=== PATIENT | male | born 1940 | race Caucasian/White ===

== ENCOUNTER 2019-02-23 12:49 | Inpatient (IN) ==
[2019-02-23] MEDS ORDERED: ACETAMINOPHEN 325 MG TAB PO PRN (15:43)
[2019-02-23] MEDS ORDERED: ONDANSETRON INJ 2 MG/ML 2 ML VIAL IV PRN (15:43)
--- NOTE | 2019-02-23 15:58 | History & Physical Report ---
Date of Service February 23, 2019 Assessment & Plan (1) Pneumonia: (2) Hilar adenopathy: - Admit to med surg with tele - Check cbc, cmp, blood cultures x 2, lactic acid, procalcitonin - CT chest completed at OSH - send image for upload into PACs system - Pulmonary consultation for bronchoscopy/biopsy - Discussed with Dr. Magallanes via phone - IV abx with cefepime - pt does not remember allergic reaction to pcn as this happened a very long time ago. - Check MRSA swab and consider adding vanc - Tessalon pearls, mucinex, flutter, incentive spirometry, duonebs QID and Q2H prn - Start symbicort - Give prednisone 40 mg one, now - monitor response - CTPE of the chest from OSH showing extensive adenopathy, masslike adenopathy in the right hilar region encasing the vessels and vascular structures. This is likely causing post obstructive pneumonia in the right lung. There are also areas of ground glass attenuation in the left lung which are not apparent on plain film. Differential diagnosis includes lung primary tumors as well as lymphoma. No pulmonary embolism - allow diet for now, NPO after midnight if needed for pulm procedure (3) CAD (coronary artery disease): (4) HTN (hypertension): (5) HLD (hyperlipidemia): (6) A-fib: - Continue on xarelto for now, will hold if pulmonology plans to do procedure (7) Hx of myocardial infarction: - Occurred in 2006 - Follows with cardiology, Dr. Newman, as outpatient routinely (8) ICD (implantable cardioverter-defibrillator) in place: (9) Cardiac defibrillator in place: - Continue asa 81 mg HS, atorvastatin 40 mg HS, carvedilol 12.5 mg BID, ramipril 10 mg BID, imdur 30 mg QAM and xarelto 20 mg QAM - Consider cardiology consultation (10) Anemia: - Consult heme/onc for severe anemia as well as pulmonary hilar adenopathy - Hgb dropped from 12.7 to 8.6 from OSH records, and source is unknown at this time unless underlying malignancy - Recheck hgb at 2200 - Heme check all stools, UA - Blood consent to be obtained by attending - Check type and screen - Known hx of hemmohoids, but he reports not currently an issue - Hx of diverticulitis which required transfusion in the past (11) Alcohol use: - Last drink was on 02/22, pt reports drinking 2 beers daily. He denies dependence, monitor for signs of withdrawal. (12) DVT prophylaxis: -teds, scds, xarelto Disposition: From home, transferred from [facility], will remain in the hospital for at least 2 day Time spent between direct patient care, discussion with family, coordination with other consultants, med [facility], chart review, and other means of reviewing the care for Mr. Lamb was 126 minutes. (13) Diverticulosis: - Hx of diverticulitis requiring blood transfusion in the past. Pt denies abd pain, cramping and blood in stool. - Guiac all stools History of Present Illness Primary Care Provider: MATTHEW NUNES This is a 79 yo M with PMHx of HTN, afib on xarelto, HLD, hx of [place] in 2006 s/o CABG x 3 and SARAH x 2 in 2006, pacemaker/ICD insertion in 2018, hemmorhoids with needs for blood transfusion and remote tobacco smoking over 30 years ago , and has been recently been being treated for pneumonia. He has failed outpatient antibiotics with azithromycin which he was placed on about 1 week ago. The patient was sent from [facility] as a direct admission for worsening shortness of breath, and new found hilar adenopathy on chest CT. At OSH he receive IV azithromycin and ceftriaxone. Pt transferred here as they do not have pulmonology. Pt notes that he started specifically feeling worse about 1 week ago and his sx include generalized malaise, weakness, shortness of breath with exertion, and nonproductive cough. Pt then states that he has been progressively getting worse for "a while". He admits to a poor appetite, and his reports this has been going on for at least 6 months. She notes he has lost 10 lbs since last winter. Pt denies night sweats, chills, or fevers. Social Hx: He drinks alcohol routinely daily, 2 beers normally, and is asking to have a beer now. Lives at home with , who manages his medications Allergies Allergy/AdvReac Type Severity Reaction Status Date / Time adhesive Allergy Unknown Blister Verified 11/12/18 08:20 latex Allergy Unknown Blister Verified 11/12/18 08:20 Penicillins Allergy Unknown UNK Verified 11/12/18 08:20 Home Medications Home Medications Medication Instructions Recorded Confirmed Type Xarelto 20 mg PO QAM 09/29/18 02/23/19 History aspirin [Ecotrin Low Strength] 81 mg PO DAILY 09/29/18 02/23/19 History atorvastatin [Lipitor] 40 mg PO HS 09/29/18 02/23/19 History carvedilol [Coreg] 12.5 mg PO BID 09/29/18 02/23/19 History furosemide 40 mg PO QAM 09/29/18 02/23/19 History isosorbide mononitrate 30 mg PO QAM 09/29/18 02/23/19 History potassium chloride [Klor-Con 10] 10 meq PO DAILY 09/29/18 02/23/19 History diltiazem HCl 02/23/19 History Past Med/Surg History Medical History Alcohol use A-fib Anemia CAD (coronary artery disease) Cardiac defibrillator in place ICD (implantable cardioverter-defibrillator) in place Hx of myocardial infarction HLD (hyperlipidemia) HTN (hypertension) Hilar adenopathy Pneumonia Atrial fibrillation Degenerative disc disease Hyperlipidemia Hypertension ICD (implantable cardioverter-defibrillator) in place Myocardial Infarction 2006. FOLLOWS IAN NEWMAN ([place]) Osteoarthritis Pacemaker [employer] DEVICE. LAST CHECKED FALL [address] @ [address] NEWMAN'S OFFICE ([place]) Surgical History History of cardiac cath History of cataract surgery History of cholecystectomy History of colonoscopy History of coronary artery bypass graft X3 VESSELS (2006) [facility]. History of heart artery stent X2 -- 2007 AFTER [place] AND CABG History of open reduction and internal fixation (ORIF) procedure RIGHT History of repair of rotator cuff LEFT SHOULDER History of total hip arthroplasty RIGHT Social History Preferred Language: Upper Sorbian Communication Ability: Effective Senior Drafter Required: No Beliefs That Will Affect Care: None Current Living Situation: Spouse Other Information That Helps Us Care for You: No Feels Safe at Home: Yes Safety Concerns: Feels Safe At This Time Smoking Status: Former smoker Smoking End Date: over 30 years ago ; Second Hand Exposure: No ; Tobacco Cessation Education Requested by Patient: No Hx Alcohol Use: Yes Alcohol type: beer Hx Substance Use: No Review of Systems Review of Systems: Constitutional: No fever, sweats or chills Eyes: No diplopia, no worsening or blurred vision ENT: normal hearing, no trouble swallowing Respiratory: As per HPI Cardiovascular: No chest pain, tightness or palpitations Abdomen: No pain, nausea, vomiting, diarrhea or constipation Musculoskeletal: No joint pain, calf pain, swelling Neurologic: No weakness, numbness/tingling, or balance problems Psychiatric: No anxiety or depression Skin: No rash or itch Physical Exam Physical Exam: General: awake, alert, no apparent distress, + pallor Head: Normocephalic, atraumatic ENT: PERRL, EOMI, no pharyngeal exudate, mucous membranes moist Chest: Clear to auscultation, on room air, no adventitious breath sounds Cardiac: Regular rate and rhythm, no murmur, no JVD, normal peripheral pulses, good capillary refill Abdominal: NABS x 4 quadrants, + minimally distended, soft, nontender to palpation, no rebound, guarding or tenderness Extremities: Normal inspection, 1+ peripheral edema in BLE, no erythema, calfs nontender to palpation Psych: Normal mood and affect Neuro: AAO x 3, strength intact bilaterally and related 5/5, no motor deficits, speech is clear, no peripheral sensory deficits Code Status & VTE Plan Code Status Full code - discussed with pt at bedside VTE Prophylaxis Plan VTE Prophylaxis will be ordered: Yes Supervising Physician Co-Signing Physician Notes I have seen the patient with Priyanka Mauricio and agree with exam , assessment and plan. PG Care Time/CCT Total # of Minutes Spent Total Time Spent with Patient: Total time spent is greater than 50% in coordination of care (as documented) at patient's floor/unit and/or counseling patient:
[2019-02-23 16:34] LABS: Basophils # (auto) 0.03 K/uL (0-0.2); Basophils % (auto) 0.3 %; Eosinophils # (auto) 0.42 K/uL (0-0.5); Eosinophils % (auto) 4.8 %; Immature Granulocytes # (auto) 0.03 K/uL (0.00-0.02); Immature Granulocytes % (auto) 0.3 %; Lymphocytes % (auto) 10.2 %; Mean Corpuscular Hemoglobin 28.6 pg (25-34); Mean Corpuscular Volume 88.9 fL (80-100); Mean Platelet Volume 10.2 fL (7.4-10.4); Monocytes # (auto) 0.97 K/uL (0.11-0.59); Neutrophils # (auto) 6.48 K/uL (1.4-6.5); Neutrophils % (auto) 73.4 %; Platelet Count 294 K/uL (130-400); RDW Coefficient of Variation 15.6 % (11.5-14.5); RDW Standard Deviation 50.9 fL (36.4-46.3); Red Blood Count 3.15 M/uL (4.7-6.1); White Blood Count 8.83 K/uL (4.8-10.8)
[2019-02-23 16:42] LABS: Mean Corpuscular Hgb Conc 32.1 g/dL (32-36)
[2019-02-23 16:52] LABS: Alanine Aminotransferase 30 U/L (12-78); Albumin Level 2.6 gm/dl (3.4-5.0); Aspartate Aminotransferase 22 U/L (15-37); Blood Urea Nitrogen 17 mg/dl (7-18); Calcium 8.6 mg/dl (8.5-10.1); Carbon Dioxide 27 mmol/L (21-32); Chloride 106 mmol/L (98-107); Est GFR (African American) 83.5; Glucose 107 mg/dl (70-99); Potassium 3.6 mmol/L (3.5-5.1); Sodium 140 mmol/L (136-145)
[2019-02-23 16:56] LABS: Albumin Globulin Ratio 0.6 (0.9-2); Alkaline Phosphatase 92 U/L (45-117); Globulin 4.3 gm/dl (2.5-4.0); Total Protein 6.9 gm/dl (6.4-8.2); Troponin I 0.021 ng/ml (0-0.045)
[2019-02-23] MEDS ORDERED: predniSONE 20 MG TAB PO ONE (17:30)
[2019-02-23] MEDS: CEFEPIME 2,000 MG in SYRINGE 7.5 ML IV SCH (17:39)
[2019-02-23] MEDS: ALBUT/IPRATROP 3MG/0.5MG NEB 3 ML VIAL NEB SCH ×2 (18:58→23:20)
[2019-02-23 19:48] LABS: Appearance Urine Clear (Clear); Bilirubin Urine Negative (Negative); Blood Urine Negative (Negative); Color Urine Yellow; Glucose Urine UA Negative (Negative); Ketones Urine Negative (Negative); Leukocyte Esterase Urine Negative (Negative); Nitrite Urine Negative (Negative); Protein Urine 1+ (Negative); Urobilinogen Urine Positive (Negative); pH Urine 5.5 (4.5-7.5)
[2019-02-23 19:57] LABS: Bacteria Urine Negative (Negative); Hyaline Casts Urine 0-5 /lpf (0-5); RBC Urine 0-4 /hpf (0-4); WBC Urine 0-5 /hpf (0-5)
[2019-02-23] MEDS: BUDESONIDE/FORMOTEROL FUMARATE 80/4.5 60 PUFFS/INHALER INH SCH (20:50)
[2019-02-23] MEDS: guaiFENesin 600 MG TABCR PO SCH (20:50)
[2019-02-23] MEDS: BENZONATATE 100 MG CAPSULE PO SCH (20:50)
[2019-02-24] MEDS: CEFEPIME 2,000 MG in SYRINGE 7.5 ML IV SCH ×3 (01:53→18:10)
[2019-02-24] MEDS: ALBUT/IPRATROP 3MG/0.5MG NEB 3 ML VIAL NEB SCH ×6 (02:43→23:26)
[2019-02-24 06:57] LABS: Hemoglobin 9.7 g/dL (14.0-18.0); Mean Corpuscular Hemoglobin 28.4 pg (25-34); Mean Corpuscular Hgb Conc 31.3 g/dL (32-36); Mean Corpuscular Volume 90.6 fL (80-100); Mean Platelet Volume 10.7 fL (7.4-10.4); Platelet Count 301 K/uL (130-400); RDW Coefficient of Variation 15.7 % (11.5-14.5); RDW Standard Deviation 52.1 fL (36.4-46.3); Red Blood Count 3.42 M/uL (4.7-6.1); White Blood Count 6.33 K/uL (4.8-10.8)
[2019-02-24 07:45] LABS: Albumin Globulin Ratio 0.6 (0.9-2); Albumin Level 2.5 gm/dl (3.4-5.0); BUN Creatinine Ratio 16.7 (10-20); Bilirubin,Total 0.9 mg/dl (0.2-1); Calcium 8.9 mg/dl (8.5-10.1); Est GFR (African American) 76.8; Est GFR (Non-African American) 66.3; Globulin 4.5 gm/dl (2.5-4.0); Magnesium 2.6 mg/dl (1.8-2.4); Phosphorus 4.4 mg/dl (2.5-4.9); Potassium 4.3 mmol/L (3.5-5.1)
[2019-02-24] MEDS: guaiFENesin 600 MG TABCR PO SCH ×2 (08:59→20:57)
[2019-02-24] MEDS: BUDESONIDE/FORMOTEROL FUMARATE 80/4.5 60 PUFFS/INHALER INH SCH ×2 (08:59→20:58)
[2019-02-24] MEDS: BENZONATATE 100 MG CAPSULE PO SCH ×3 (09:00→20:58)
[2019-02-24] MEDS: DOXYCYCLINE HYCLATE 100 MG in DEXTROSE 5% 100 ML IV SCH ×2 (13:13→21:09)
--- NOTE | 2019-02-24 17:38 | Hospitalist Progress Note ---
Date of Service February 24, 2019 Assessment & Plan (1) Pneumonia: (2) Hilar adenopathy: -Continue to med surg with tele - Check cbc, cmp, blood cultures x 2, lactic acid, procalcitonin - Continue antibiotics -Speech consult placed for dysphagia - CT chest completed at OSH - send image for upload into PACs system - Pulmonary consultation for bronchoscopy/biopsy - Discussed with Dr. Magallanes via phone bronchoscopy on Friday. - Continue holding [place] for the procedure - IV abx with cefepime - pt does not remember allergic reaction to pcn as this happened a very long time ago. - MRSA swab and consider adding vanc - Tessalon pearls, mucinex, flutter, incentive spirometry, duonebs QID and Q2H prn - Continue Symbicort - Continue prednisone 40 mg one, now - monitor response - CTPE of the chest from OSH showing extensive adenopathy, masslike adenopathy in the right hilar region encasing the vessels and vascular structures. This is likely causing post obstructive pneumonia in the right lung. There are also areas of ground glass attenuation in the left lung which are not apparent on plain film. Differential diagnosis includes lung primary tumors as well as lymphoma. No pulmonary embolism -Heart healthy diet (3) CAD (coronary artery disease): (4) HTN (hypertension): (5) HLD (hyperlipidemia): (6) A-fib: - Continue on xarelto for now, will hold if pulmonology plans to do procedure (7) Hx of myocardial infarction: - Occurred in 2006 - Follows with cardiology, Dr. Sanchez, as outpatient routinely (8) ICD (implantable cardioverter-defibrillator) in place: (9) Cardiac defibrillator in place: - Continue asa 81 mg HS, atorvastatin 40 mg HS, carvedilol 12.5 mg BID, ramipril 10 mg BID, imdur 30 mg QAM and xarelto 20 mg QAM - Consider cardiology consultation (10) Anemia: - Consult heme/onc for severe anemia as well as pulmonary hilar adenopathy - Hgb dropped from 12.7 to 8.6 from OSH records, and source is unknown at this time unless underlying malignancy - Recheck hgb at 2200 - Heme check all stools, UA - Blood consent to be obtained by attending - Check type and screen - Known hx of hemmohoids, but he reports not currently an issue - Hx of diverticulitis which required transfusion in the past (11) Alcohol use: - Last drink was on 02/22, pt reports drinking 2 beers daily. He denies dependence, monitor for signs of withdrawal. (12) DVT prophylaxis: -teds, scds, xarelto Disposition: From home, transferred from [facility], will remain in the hospital for at least 2 day Time spent between direct patient care, discussion with family, coordination with other consultants, med [facility], chart review, and other means of reviewing the care for Mr. Lamb was 126 minutes. (13) Diverticulosis: - Hx of diverticulitis requiring blood transfusion in the past. Pt denies abd pain, cramping and blood in stool. - Guiac all stools Subjective Patient seen and examined at the bedside. His reports that sometimes he chokes on food and that his swallowing is not as supposed to be. Patient is afebrile. He is resting in the bed. He is aware that he is going to have bronchoscopy on Friday as we discussed with Dr. Staton thoraco-pulmonary. Patient is off Xarelto for the procedure but we will give him Lovenox tonight. Patient is on 2 L of oxygen. Patient denies fever chills chest pain shortness of breath abdominal pain frequency urgency hemoptysis hematuria or dysuria or melena. Review of Systems Review of Systems: All systems reviewed & are unremarkable except as noted in HPI & below Physical Exam Constitutional: WD/WN, vitals as above well developed and + obese Eyes: PERRL, conjunctivae normal, anicteric sclerae ENMT: external ear and nose normal, oropharynx normal Neck: trachea midline, no thyromegaly Respiratory: Auscultation: + crackles, + wheezes and + bronchovesicular breath sounds Cardiovascular: RRR, no murmur, no edema Chest (Breasts): normal inspection/palpation of breasts Gastrointestinal (Abdomen): normal bowel sounds, soft, nontender, no hepatosplenomegaly Musculoskeletal: no cyanosis or clubbing, extremities motor strength 5/5 Skin: no rashes, warm and dry Neurologic: patellar DTR's 2+ bilat, sensation intact Psychiatric: A+Ox3, euthymic affect Genitourinary: no testicular masses, no penis abnormality Lymphatic: no cervical or axillary lymphadenopathy Results & Data Vital Signs (Past 12 Hours) Vital Signs Temp Pulse Resp BP BP Pulse Ox Pulse Ox 02/24/19 15:15 36.4 C L 75 20 110/66 96 02/24/19 14:57 78 20 96 02/24/19 14:50 97 02/24/19 11:22 36.4 C L 83 18 120/74 93 02/24/19 11:18 79 20 93 02/24/19 10:21 80 L 02/24/19 07:26 36.3 C L 72 18 129/70 96 02/24/19 07:10 82 21 90 Pulse Ox 02/24/19 15:15 02/24/19 14:57 02/24/19 14:50 02/24/19 11:22 02/24/19 11:18 02/24/19 10:21 96 02/24/19 07:26 02/24/19 07:10 PG Care Time/CCT Total # of Minutes Spent Total Time Spent with Patient: Total time spent is greater than 50% in coordination of care (as documented) at patient's floor/unit and/or counseling patient:
--- NOTE | 2019-02-24 19:39 | Pulmonary Consultation ---
Date of Consultation February 24, 2019 Assessment & Plan (1) Mediastinal lymphadenopathy: The origin of this adenopathy is unclear but it may be secondary to an underlying inflammatory response versus a malignancy. There is more remote possibility that this may represent pulmonary sarcoidosis, but unlikely given the acuity of his symptoms and associated B symptoms as per the . I will pr oceed with a endobronchial ultrasound biopsy on Friday. The goal will be to develop stage and diagnose him if he indeed does have cancer. Of note, if he turns out to have lymphoma, these are more difficult to diagnose on FNA passes and usually require a full lymph node excision biopsy. He needs to be n.p.o. on night and all anticoagulation to be held in the evening of . Please hold Xarelto starting today. Present on Admission?: Yes (2) Right upper lobe pulmonary infiltrate: I am not certain that this clearly represents a pneumonic process given his lack of fevers, leukocytosis and negative procalcitonin level. There may be a postobstructive component if this is indeed a malignancy. Again this may represent some other insidious inflammatory process such as sarcoidosis but again this is less likely given the acuity of symptoms. I will likely proceed with a transbronchial lung biopsy during the bronchoscopy performed on Friday as well if the mediastinal lymph nodes do not return clerk to be revealing of any underlying pathology during the procedure. Present on Admission?: Yes (3) Acute hypoxemic respiratory failure: This seems to be improving somewhat. He is saturating well on 2 L nasal cannula. Likely secondary to the infiltrative process seen on the right and left lungs. He is currently on prednisone and perhaps his improvement in his oxygenation and symptoms may indicate that this is a steroid responsive process. Hopefully the biopsy will be more revealing and help guide his therapy.. Present on Admission?: Yes (4) A-fib: He has a history of paroxysmal atrial fibrillation I have asked the [facility] talist to hold his anticoagulation prior to the procedure Friday. Present on Admission?: Yes (5) Anemia: Unclear etiology possibly quality control representative of an insidious process like an underlying lymphoma. This may also be contributing to his dyspnea. Present on Admission?: Yes History of Present Illness Attending Physician: Cass Oliveros MD 79-year-old male with past medical history of atrial fibrillation, dual-chamber ICD, coronary artery bypass graft, hypertension who presented to an outside hospital with increasing shortness of breath for the past month. Patient states that he was having increasing dyspnea while walking on a flat surface and ultimately presented to the hospital because he was unable to get around the house. Outside hospital performed a CT scan of the chest that demonstrated large mediastinal adenopathy and consolidative changes in the right lung as well. There are small patchy areas of groundglass opacities in the left as well. Patient denies any night sweats, nausea, vomiting, chest pain, weight loss, fevers or chills. He does have an occasional mildly nonproductive cough. He is currently saturating well on 2 L nasal cannula is that he is improving from a dyspnea standpoint since being in the hospital. He he says he smoked a pipe about 30 years ago every once in a while. He also smoked cigarettes in his teens socially. He has no substantial smoking history outside of this. He worked as a alvarez for years. He built his house and lives with his in the house that he built. They have no pets. There is no recent travel. He denies any rashes or joint aches aside for chronic osteoarthritis pain. He denies any recent medication changes. He endorses drinking alcohol. He says he "drinks 2 beers a day". He denies any alcohol withdrawal symptoms. Upon review of the H&P from this admission, his indicated that he has been feeling ill for the last 6 months and that he has lost about 10 pounds. He denied this to me. His is not present in the room at this time. He does have some evidence of anemia on his labs which are relatively new. He is currently on cefepime and doxycycline. He is also on prednisone 40 mg. He was started on Symbicort. His procalcitonin level has been negative. He does not have a leukocytosis and he has not had any documented fever. Allergies Allergy/AdvReac Type Severity Reaction Status Date / Time adhesive Allergy Unknown Blister Verified 11/12/18 08:20 latex Allergy Unknown Blister Verified 11/12/18 08:20 Penicillins Allergy Unknown UNK Verified 11/12/18 08:20 Home Medications Home Medications Medication Instructions Recorded Confirmed Type Xarelto 20 mg PO QAM 09/29/18 02/23/19 History aspirin [Ecotrin Low Strength] 81 mg PO DAILY 09/29/18 02/23/19 History atorvastatin [Lipitor] 40 mg PO HS 09/29/18 02/23/19 History carvedilol [Coreg] 12.5 mg PO BID 09/29/18 02/23/19 History furosemide 40 mg PO QAM 09/29/18 02/23/19 History isosorbide mononitrate 30 mg PO QAM 09/29/18 02/23/19 History potassium chloride [Klor-Con 10] 10 meq PO DAILY 09/29/18 02/23/19 History diltiazem HCl 120 mg PO DAILY 02/23/19 02/23/19 History Patient History Medical History Alcohol use A-fib Anemia CAD (coronary artery disease) Cardiac defibrillator in place ICD (implantable cardioverter-defibrillator) in place Hx of myocardial infarction HLD (hyperlipidemia) HTN (hypertension) Hilar adenopathy Pneumonia Atrial fibrillation Degenerative disc disease Hyperlipidemia Hypertension ICD (implantable cardioverter-defibrillator) in place Myocardial Infarction 2006. FOLLOWS IAN NEWMAN ([place]) Osteoarthritis Pacemaker [employer] DEVICE. LAST CHECKED FALL [address] NEWMAN'S OFFICE ([place]) Surgical History History of cardiac cath History of cataract surgery History of cholecystectomy History of colonoscopy History of coronary artery bypass graft X3 VESSELS (2006) [facility]. History of heart artery stent X2 -- 2007 AFTER [place] AND CABG History of open reduction and internal fixation (ORIF) procedure RIGHT History of repair of rotator cuff LEFT SHOULDER History of total hip arthroplasty RIGHT Social History Preferred Language: Croatian Communication Ability: Effective Geometry Tutor Required: No Beliefs That Will Affect Care: None Current Living Situation: Spouse Other Information That Helps Us Care for You: No Feels Safe at Home: Yes Safety Concerns: Feels Safe At This Time Smoking Status: Former smoker Smoking End Date: over 30 years ago ; Second Hand Exposure: No ; Tobacco Cessation Education Requested by Patient: No Hx Alcohol Use: Yes Alcohol type: beer Hx Substance Use: No Review of Systems Review of Systems: All systems reviewed & are unremarkable except as noted in HPI & below Physical Exam Constitutional: well developed Eyes: PERRL, conjunctivae normal, anicteric sclerae EOM intact bilaterally ENMT: Ears: + hearing impairment Neck: trachea midline, no thyromegaly Respiratory: no audible wheezes Mild crackles in the right lung. Relatively clear on the left. Cardiovascular: RRR, no murmur, no edema Palpation: normal PMI Gastrointestinal (Abdomen): Inspection/Auscultation: abdomen normal to inspection; no abdominal edema Musculoskeletal: Head/Neck/Chest: normocephalic and neck supple Skin: Prior sternotomy scar noted. Lymphatic: no cervical or axillary lymphadenopathy Results & Data Vital Signs (Past 12 Hours) Vital Signs Temp Pulse Pulse Resp BP BP Pulse Ox 02/24/19 19:08 97.7 F 73 18 121/73 94 02/24/19 16:00 85 02/24/19 15:15 97.5 F L 75 20 110/66 96 02/24/19 14:57 78 20 96 02/24/19 14:50 97 02/24/19 11:22 97.5 F L 83 18 120/74 93 02/24/19 11:18 79 20 93 02/24/19 10:21 Pulse Ox Pulse Ox 02/24/19 19:08 02/24/19 16:00 02/24/19 15:15 02/24/19 14:57 02/24/19 14:50 02/24/19 11:22 02/24/19 11:18 02/24/19 10:21 80 L 96 Laboratory Results 02/24/19 06:00 02/24/19 06:[address] imaging reviewed and as noted there is significant mediastinal adenopathy. There appears to be a station 4R lymph node and a subcarinal lymph node. There also appears to be right hilar adenopathy. There does appear to be some bronchial wall thickening on the right and associated infiltrative changes. There is appears to be some left sided ground-glass opacities as well. PG Care Time/CCT Total # of Minutes Spent Total Time Spent with Patient: Total time spent is greater than 50% in coordination of care (as documented) at patient's floor/unit and/or counseling patient:
[2019-02-24] MEDS ORDERED: ENOXAPARIN INJ 40 MG/0.4 ML SYR SQ ONE (20:00)
[2019-02-25] MEDS: CEFEPIME 2,000 MG in SYRINGE 7.5 ML IV SCH ×3 (02:12→17:54)
[2019-02-25] MEDS: ALBUT/IPRATROP 3MG/0.5MG NEB 3 ML VIAL NEB SCH ×6 (03:13→23:03)
[2019-02-25 07:36] LABS: Hematocrit (blood only) 26.8 % (42-52); Hemoglobin 8.6 g/dL (14.0-18.0); Mean Corpuscular Hemoglobin 28.5 pg (25-34); Mean Corpuscular Hgb Conc 32.1 g/dL (32-36); Mean Corpuscular Volume 88.7 fL (80-100); Platelet Count 338 K/uL (130-400); RDW Coefficient of Variation 15.8 % (11.5-14.5); RDW Standard Deviation 51.4 fL (36.4-46.3); Red Blood Count 3.02 M/uL (4.7-6.1); White Blood Count 8.43 K/uL (4.8-10.8)
[2019-02-25 08:05] LABS: Albumin Level 2.3 gm/dl (3.4-5.0); BUN Creatinine Ratio 19.1 (10-20); Calcium 8.5 mg/dl (8.5-10.1); Creatinine Clr Calc Pharmacy 61.7 ml/min; Est GFR (African American) 84.5; Est GFR (Non-African American) 72.9; Potassium 3.7 mmol/L (3.5-5.1)
[2019-02-25 08:07] LABS: Albumin Globulin Ratio 0.6 (0.9-2); Bilirubin,Total 0.6 mg/dl (0.2-1); Globulin 3.9 gm/dl (2.5-4.0); Total Protein 6.2 gm/dl (6.4-8.2)
[2019-02-25] MEDS: guaiFENesin 600 MG TABCR PO SCH ×2 (09:02→21:35)
[2019-02-25] MEDS: FUROSEMIDE 40 MG TAB PO SCH (09:02)
[2019-02-25] MEDS: BENZONATATE 100 MG CAPSULE PO SCH ×3 (09:02→21:36)
[2019-02-25] MEDS: BUDESONIDE/FORMOTEROL FUMARATE 80/4.5 60 PUFFS/INHALER INH SCH ×2 (09:02→21:36)
[2019-02-25] MEDS: DOXYCYCLINE HYCLATE 100 MG in DEXTROSE 5% 100 ML IV SCH ×2 (09:06→21:43)
[2019-02-25 09:22] LABS: INR 1.3 (0.9-1.1)
--- NOTE | 2019-02-25 09:49 | Hospitalist Progress Note ---
Date of Service February 25, 2019 Assessment & Plan (1) Pneumonia: (2) Hilar adenopathy: -Continue to med surg with tele - Check cbc, cmp, blood cultures x 2, lactic acid, procalcitonin - Continue antibiotics -Speech consult placed for dysphagia - CT chest completed at OSH - send image for upload into PACs system - Pulmonary consultation for bronchoscopy/biopsy - Discussed with Dr. Magallanes via phone bronchoscopy on Friday. - Continue holding Bedolla for the procedure - IV abx with cefepime - pt does not remember allergic reaction to pcn as this happened a very long time ago. - MRSA swab and consider adding vanc - Tessalon pearls, mucinex, flutter, incentive spirometry, duonebs QID and Q2H prn - Continue Symbicort - Continue prednisone 40 mg one, now - monitor response - CTPE of the chest from OSH showing extensive adenopathy, masslike adenopathy in the right hilar region encasing the vessels and vascular structures. This is likely causing post obstructive pneumonia in the right lung. There are also areas of ground glass attenuation in the left lung which are not apparent on plain film. Differential diagnosis includes lung primary tumors as well as lymphoma. No pulmonary embolism -Heart healthy diet (3) CAD (coronary artery disease): (4) HTN (hypertension): (5) HLD (hyperlipidemia): (6) A-fib: - Continue on xarelto for now, will hold if pulmonology plans to do procedure (7) Hx of myocardial infarction: - Occurred in 2006 - Follows with cardiology, Dr. Sanchez, as outpatient routinely (8) ICD (implantable cardioverter-defibrillator) in place: (9) Cardiac defibrillator in place: - Continue asa 81 mg HS, atorvastatin 40 mg HS, carvedilol 12.5 mg BID, ramipril 10 mg BID, imdur 30 mg QAM and xarelto 20 mg QAM - Consider cardiology consultation (10) Anemia: - Consult heme/onc for severe anemia as well as pulmonary hilar adenopathy - Hgb dropped from 12.7 to 8.6 from OSH records, and source is unknown at this time unless underlying malignancy - Recheck hgb at 2200 - Heme check all stools, UA - Blood consent to be obtained by attending - Check type and screen - Known hx of hemmohoids, but he reports not currently an issue - Hx of diverticulitis which required transfusion in the past (11) Alcohol use: - Last drink was on 02/22, pt reports drinking 2 beers daily. He denies dependence, monitor for signs of withdrawal. (12) DVT prophylaxis: -teds, scds, xarelto Disposition: From home, transferred from [facility], will remain in the hospital for at least 2 day Time spent between direct patient care, discussion with family, coordination with other consultants, med [facility], chart review, and other means of reviewing the care for Mr. Lamb was 126 minutes. (13) Diverticulosis: - Hx of diverticulitis requiring blood transfusion in the past. Pt denies abd pain, cramping and blood in stool. - Guiac all stools Subjective Patient seen and examined at the bedside. His reports that sometimes he chokes on food and that his swallowing is not as supposed to be. Patient is afebrile. He is resting in the bed. He is aware that he is going to have bronchoscopy on Friday as we discussed with Dr. Staton thoraco-pulmonary. Patient is off Xarelto for the procedure but we will give him Lovenox tonight. Patient is on 2 L of oxygen. Patient denies fever chills chest pain shortness of breath abdominal pain frequency urgency hemoptysis hematuria or dysuria or melena. Physical Exam Constitutional: WD/WN, vitals as above well developed and + obese Eyes: PERRL, conjunctivae normal, anicteric sclerae ENMT: external ear and nose normal, oropharynx normal Neck: trachea midline, no thyromegaly Respiratory: Auscultation: + crackles, + wheezes and + bronchovesicular breath sounds Cardiovascular: RRR, no murmur, no edema Chest (Breasts): normal inspection/palpation of breasts Gastrointestinal (Abdomen): normal bowel sounds, soft, nontender, no hepatosplenomegaly Musculoskeletal: no cyanosis or clubbing, extremities motor strength 5/5 Skin: no rashes, warm and dry Neurologic: patellar DTR's 2+ bilat, sensation intact Psychiatric: A+Ox3, euthymic affect Genitourinary: no testicular masses, no penis abnormality Lymphatic: no cervical or axillary lymphadenopathy Results & Data Vital Signs (Past 12 Hours) Vital Signs Temp Pulse Pulse Resp BP BP Pulse Ox 02/25/19 07:27 36.6 C 74 18 136/86 92 02/25/19 07:22 77 20 92 02/25/19 03:48 36.4 C L 73 19 120/70 97 02/24/19 23:27 73 16 96 02/24/19 23:20 70 02/24/19 22:56 36.6 C 71 20 131/78 95 PG Care Time/CCT Total # of Minutes Spent Total Time Spent with Patient: Total time spent is greater than 50% in coor dination of care (as documented) at patient's floor/unit and/or counseling patient:
--- NOTE | 2019-02-25 11:23 | History & Physical Bridge Note ---
Date of Service February 25, 2019 History & Physical Bridge Note I have examined the patient, reviewed the History & Physical and in the interval since the performance of the History & Physical I have noted the following changes of clinical significance: no changes noted
[2019-02-25] MEDS ORDERED: ONDANSETRON INJ 2 MG/ML 2 ML VIAL ONE (12:25)
[2019-02-25] MEDS ORDERED: LIDOCAINE HCL 2% 2 ML VIAL/AMP(20MG/ML) INFIL ONE (12:25)
[2019-02-25] MEDS ORDERED: GLYCOPYRROLATE 0.2 MG/ML VIAL ONE (12:25)
[2019-02-25] MEDS ORDERED: NEOSTIGMINE METHYLSULFATE 5 MG/5 ML SYR ONE (12:25)
[2019-02-25] MEDS ORDERED: PROPOFOL IV EMULSION 10 MG/ML 20 ML VIAL IV ONE (12:25)
[2019-02-25] MEDS ORDERED: fentaNYL citrate 100 MCG/2 ML VIAL ONE (12:25)
[2019-02-25] MEDS ORDERED: DEXAMETHASONE SOD INJ 4 MG/ML VIAL ONE (12:25)
--- NOTE | 2019-02-25 13:20 | Anesthesiology Consultation ---
Date of Service February 25, 2019 Assessment & Plan Chart Review Chart Review: Acceptable Risk for Surgery Consults Requested none History Surgery Operation Date: 02/25/19 11:00 Proposed Procedures p Endobronchial Ultrasound - Matthias Magallanes MD Height/Weight Height: 5 ft 10 in Weight: 84.3 kg Allergies Allergy/AdvReac Type Severity Reaction Status Date / Time adhesive Allergy Unknown Blister Verified 11/12/18 08:20 latex Allergy Unknown Blister Verified 11/12/18 08:20 Penicillins Allergy Unknown UNK Verified 11/12/18 08:20 Medications Home Medications Medication Instructions Recorded Confirmed Last Taken Xarelto 20 mg PO QAM 09/29/18 02/23/19 02/22/19 20:00 20 MG aspirin [Ecotrin Low Strength] 81 mg PO DAILY 09/29/18 02/23/19 02/23/19 08:00 81 MG atorvastatin [Lipitor] 40 mg PO HS 09/29/18 02/23/19 02/22/19 20:00 40 MG carvedilol [Coreg] 12.5 mg PO BID 09/29/18 02/23/19 02/23/19 08:00 12.5 furosemide 40 mg PO QAM 09/29/18 02/23/19 02/22/19 08:00 40 isosorbide mononitrate 30 mg PO QAM 09/29/18 02/23/19 02/23/19 08:00 30 MG potassium chloride [Klor-Con 10] 10 meq PO DAILY 09/29/18 02/23/19 02/23/19 08:00 10 MEQ diltiazem HCl 120 mg PO DAILY 02/23/19 02/23/19 02/23/19 08:00 120 MG Active Medications Generic Name Dose Route Start Last Admin Trade Name Freq PRN Reason Stop Dose Admin Albuterol 3 ml 02/23/19 19:00 02/25/19 11:08 Duoneb NEB 03/25/19 18:59 3 ml Q4R ARTEM Administration Benzonatate 100 mg 02/23/19 21:00 02/25/19 09:02 Tessalon Perle PO 03/25/19 20:59 100 mg TID ARTEM Administration Budesonide/Formoterol Fumarate 2 puffs 02/23/19 21:00 02/25/19 09:02 Symbicort 80mcg/4.5mcg INH 03/25/19 20:59 2 puffs BID ARTEM Administration Furosemide 40 mg 02/25/19 09:00 02/25/19 09:02 Lasix PO 03/27/19 08:59 40 mg QAM ARTEM Administration Guaifenesin 1,200 mg 02/23/19 21:00 02/25/19 09:02 Mucinex PO 03/25/19 20:59 1,200 mg Q12 ARTEM Administration Cefepime HCl 2,000 mg/ Syringe 20 mls @ 5.5 mls/min 02/23/19 18:00 02/25/19 10:00 IV 03/02/19 17:59 5.5 mls/min Q8H ARTEM Administration Protocol Doxycycline Hyclate 100 mg/ 110 mls @ 50 mls/hr 02/24/19 11:00 02/25/19 11:18 Dextrose IV 02/26/19 10:59 Infused BID ARTEM Infusion NPO Date Last Intake of Fluids: 02/24/19 Time Last Intake of Fluids: 18:00 Date Last Intake of Solids: 02/24/19 Time Last Intake of Solids: 18:00 Past Medical History Medical History Alcohol use A-fib Anemia CAD (coronary artery disease) Cardiac defibrillator in place ICD (implantable cardioverter-defibrillator) in place Hx of myocardial infarction HLD (hyperlipidemia) HTN (hypertension) Hilar adenopathy Pneumonia Atrial fibrillation Degenerative disc disease Hyperlipidemia Hypertension ICD (implantable cardioverter-defibrillator) in place Myocardial Infarction 2006. FOLLOWS IAN NEWMAN (BATH/CECIL) Osteoarthritis Pacemaker [employer] DEVICE. LAST CHECKED FALL [address] NEWMAN'S OFFICE ([place]) Past Surgical History Surgical History History of cardiac cath History of cataract surgery History of cholecystectomy History of colonoscopy History of coronary artery bypass graft X3 VESSELS (2006) [facility]. History of heart artery stent X2 -- 2007 AFTER GA AND CABG History of open reduction and internal fixation (ORIF) procedure RIGHT History of repair of rotator cuff LEFT SHOULDER History of total hip arthroplasty RIGHT Social History Smoking Status: Former smoker Smoking End Date: over 30 years ago Hx Alcohol Use: Yes Alcohol type: beer alcohol intake frequency: 0-2 drinks per day Hx Substance Use: No substance use type: does not use Physical Exam Vital Signs Last Vital Signs Temp 36.4 C L 02/25/19 12:29 Pulse 72 02/25/19 12:29 Resp 18 02/25/19 12:29 BP 125/81 02/25/19 12:29 Pulse Ox 93 02/25/19 12:29 Testing Laboratory Results 02/25/19 07:09 02/25/19 07:09 PT 13.0 Seconds (9.0-12.0) H 02/25/19 09:02 INR 1.3 (0.9-1.1) H 02/25/19 09:02 Urine Color Yellow 02/23/19 18:52 Urine Appearance Clear (Clear) 02/23/19 18:52 Urine pH 5.5 (4.5-7.5) 02/23/19 18:52 Ur Specific [place] 1.010 (1.000-1.030) 02/23/19 18:52 Urine Protein 1+ (Negative) H 02/23/19 18:52 Urine Glucose (UA) Negative (Negative) 02/23/19 18:52 Urine Ketones Negative (Negative) 02/23/19 18:52 Urine Nitrite Negative (Negative) 02/23/19 18:52 Ur Leukocyte Esterase Negative (Negative) 02/23/19 18:52 Urine RBC 0-4 /hpf (0-4) 02/23/19 18:52 Urine WBC 0-5 /hpf (0-5) 02/23/19 18:52 Ur Epithelial Cells 10-20 /lpf (0-5) H 02/23/19 18:52 Blood Type O Positive 02/23/19 16:19 Antibody Screen NEGATIVE 02/23/19 16:19 02/25/19 02:00 Gram Stain - Final Sputum, Expectorated 02/23/19 16:20 Aerobic Blood Culture - Preliminary Blood No growth in Aerobic bottle after 24 hours. Anaerobic Blood Culture - Preliminary No growth in Anaerobic bottle after 24 hours. 02/23/19 16:19 Aerobic Blood Culture - Preliminary Blood No growth in Aerobic bottle after 24 hours. Anaerobic Blood Culture - Preliminary No growth in Anaerobic bottle after 24 hours.
[2019-02-25] MEDS ORDERED: ATROPINE SULFATE 0.1 MG/ML 10ML SYR IV PRN (13:21)
[2019-02-25] MEDS ORDERED: ePHEDrine sulfate 50 MG/ML AMP IV PRN (13:21)
[2019-02-25] MEDS ORDERED: LARYING-O-JET KIT (LTA) ONE (13:54)
[2019-02-25] MEDS ORDERED: ROCURONIUM BROMIDE 10 MG/ML 5 ML VIAL ONE (14:14)
--- NOTE | 2019-02-25 14:31 | Oncology Consultation ---
Date of Consultation February 24, 2019 Assessment & Plan (1) Mediastinal lymphadenopathy: The appearance of the adenopathy in his chest is very concerning for a malignancy. I did not see an obvious lung primary on his CT, though it could be masked by some of the infiltrates he has. Another consideration would be a lymphoma. He has no localizing symptoms of another primary mass, such as enlarging skin lesions, colorectal complaints, or dysphagia or odynophagia. At this point, tissue sampling is critical. I would consult pulmonology for an EBUS and biopsies. We can follow up on the results while he's here, though he likely does not need to wait for a result if he's otherwise clinically stable. I will make arrangements for him to be seen in my office to review the pathology results and to discuss next steps. Present on Admission?: Yes (2) Anemia: He is moderately anemic. His RBCs are normocytic and I suspect this represents anemia of malignancy or anemia of chronic disease. We should work up the anemia with vitamin and iron studies and a TSH. I can continue a workup as an outpatient. Present on Admission?: Yes History of Present Illness Reason for Consultation: Thoracic lymphadenopathy Attending Physician: Cass Oliveros MD History of Present Illness Mr. Lamb is an 79 year old man with a history of CAD s/p VA, AFib on Xarelto, a dual-chamber ICD, HTN, and prior tobacco use. He has had a persistent cough for several weeks. He's been treated for a pneumonia as an outpatient but did not significantly improve with a Z-pack. He's had progressive shortness of breath, particularly with ambulation, and so came to the [facility] ER on 02/23. There, a chest CT revealed patchy infiltrates in his right lung and multiple large mediastinal lymph nodes. He was transferred her for further evaluation. In retrospect, he's lost around 10 lb over the last 8 months or so. He denies any fevers, night sweats, palpable adenopathy, new pain, hemoptysis, nausea, or headaches. He thinks he's maybe not been quite himself for a few months, but isn't really sure. He doesn't recall feeling really unwell until recently. Allergies Allergy/AdvReac Type Severity Reaction Status Date / Time adhesive Allergy Unknown Blister Verified 11/12/18 08:20 latex Allergy Unknown Blister Verified 11/12/18 08:20 Penicillins Allergy Unknown UNK Verified 11/12/18 08:20 Home Medications Home Medications Medication Instructions Recorded Confirmed Type Xarelto 20 mg PO QAM 09/29/18 02/23/19 History aspirin [Ecotrin Low Strength] 81 mg PO DAILY 09/29/18 02/23/19 History atorvastatin [Lipitor] 40 mg PO HS 09/29/18 02/23/19 History carvedilol [Coreg] 12.5 mg PO BID 09/29/18 02/23/19 History furosemide 40 mg PO QAM 09/29/18 02/23/19 History isosorbide mononitrate 30 mg PO QAM 09/29/18 02/23/19 History potassium chloride [Klor-Con 10] 10 meq PO DAILY 09/29/18 02/23/19 History diltiazem HCl 120 mg PO DAILY 02/23/19 02/23/19 History Patient History Medical History Alcohol use A-fib Anemia CAD (coronary artery disease) Cardiac defibrillator in place ICD (implantable cardioverter-defibrillator) in place Hx of myocardial infarction HLD (hyperlipidemia) HTN (hypertension) Hilar adenopathy Pneumonia Atrial fibrillation Degenerative disc disease Hyperlipidemia Hypertension ICD (implantable cardioverter-defibrillator) in place Myocardial Infarction 2006. FOLLOWS IAN NEWMAN (LOCUST/CECIL) Osteoarthritis Pacemaker [employer] DEVICE. LAST CHECKED FALL [address] NEWMAN'S OFFICE ([place]) Surgical History History of cardiac cath History of cataract surgery History of cholecystectomy History of colonoscopy History of coronary artery bypass graft X3 VESSELS (2006) [facility]. History of heart artery stent X2 -- 2007 AFTER [place] AND CABG History of open reduction and internal fixation (ORIF) procedure RIGHT History of repair of rotator cuff LEFT SHOULDER History of total hip arthroplasty RIGHT Social History Preferred Language: Yi Communication Ability: Effective Cane Weigher Required: No Beliefs That Will Affect Care: None Current Living Situation: Spouse Other Information That Helps Us Care for You: No Feels Safe at Home: Yes Safety Concerns: Feels Safe At This Time Smoking Status: Former smoker Smoking End Date: over 30 years ago ; Second Hand Exposure: No ; Tobacco Cessation Education Requested by Patient: No Hx Alcohol Use: Yes Alcohol type: beer Hx Substance Use: No Review of Systems Constitutional: + fatigue and + weight loss; no fever Eyes: no worsening vision Respiratory: + cough and + dyspnea; no hemoptysis Cardiovascular: no chest pain and no edema Gastrointestinal: no abdominal pain, no nausea and no diarrhea/loose stools Genitourinary: no dysuria Musculoskeletal: No back or bone pain. Integumentary: no rash and no new lesions Neurologic: no dizziness and no headache(s) Hematologic / Lymphatic: no lymphadenopathy and no night sweats Physical Exam Constitutional: average body habitus and comfortable; no acute distress Eyes: + anicteric sclerae and EOM intact bilaterally ENMT: external ear and nose normal, oropharynx normal Respiratory: normal respiratory effort Auscultation: + crackles and + wheezes Cardiovascular: RRR, no murmur, no edema Gastrointestinal (Abdomen): Inspection/Auscultation: normal bowel sounds Percussion/Palpation: abdomen soft; abdomen nontender Skin: no rashes, warm and dry Psychiatric: A+Ox3, euthymic affect Lymphatic: no cervical or axillary lymphadenopathy Results & Data Vital Signs (Past 12 Hours) Vital Signs Temp Pulse Resp BP BP Pulse Ox 02/25/19 12:29 36.4 C L 72 18 125/81 93 02/25/19 11:29 36.5 C 71 18 117/68 100 02/25/19 11:09 82 18 96 02/25/19 07:27 36.6 C 74 18 136/86 92 02/25/19 07:22 77 20 92 02/25/19 03:48 36.4 C L 73 19 120/70 97 Laboratory Results Laboratory Tests 02/23/19 02/23/19 16:19 16:19 WBC 8.83 Hgb 9.0 L Plt Count 294 Albumin 2.6 L A CMP on admission was otherwise largely within normal limits, aside from the albumin. Diagnostic Findings I reviewed his outside chest CT. He has multiple large mediastinal and hilar lymph nodes. He has patchy infiltrates in both lungs (R>L) but no obvious dominant masses to suggest a primary tumor. (1) Anemia Anemia type: unspecified type Qualified Code(s): D64.9 - Anemia, unspecified
[2019-02-25] MEDS ORDERED: ALBUT/IPRATROP 3MG/0.5MG NEB 3 ML VIAL NEB STA (15:33)
--- NOTE | 2019-02-25 15:54 | Anesthesiology Progress Note ---
Date of Service February 25, 2019 Anesthesia Post Procedure Vital Signs Vital Signs: Temp Pulse Pulse Pulse Resp BP BP 02/25/19 15:45 70 17 134/78 02/25/19 15:35 36.3 C L 70 22 116/70 02/25/19 15:20 70 21 123/72 02/25/19 15:10 70 22 125/76 02/25/19 15:00 70 17 120/69 02/25/19 14:52 36.4 C L 86 25 H 101/83 02/25/19 12:29 36.4 C L 72 18 125/81 02/25/19 11:29 36.5 C 71 18 117/68 02/25/19 11:09 82 18 02/25/19 07:27 36.6 C 74 18 136/86 02/25/19 07:22 77 20 02/25/19 03:48 36.4 C L 73 19 120/70 02/24/19 23:27 73 16 02/24/19 23:20 70 02/24/19 22:56 36.6 C 71 20 131/78 02/24/19 19:34 69 16 02/24/19 19:08 36.5 C 73 18 121/73 02/24/19 16:00 85 Pulse Ox 02/25/19 15:45 100 02/25/19 15:35 91 02/25/19 15:20 90 02/25/19 15:10 98 02/25/19 15:00 96 02/25/19 14:52 95 02/25/19 12:29 93 02/25/19 11:29 100 02/25/19 11:09 96 02/25/19 07:27 92 02/25/19 07:22 92 02/25/19 03:48 97 02/24/19 23:27 96 02/24/19 23:20 02/24/19 22:56 95 02/24/19 19:34 96 02/24/19 19:08 94 02/24/19 16:00 Transfer of Care Handoff Completed per policy Notes Mental Status: alert / awake / arousable and participated in evaluation Patient Amnestic to Procedure: Yes Nausea / Vomiting: adequately controlled Pain: adequately controlled Airway Patency, RR, SpO2: stable & adequate BP & HR: stable & adequate Hydration State: stable & adequate Anesthetic Complications: no major complications apparent
--- NOTE | 2019-02-25 16:28 | Hospitalist Progress Note ---
Date of Service February 25, 2019 Assessment & Plan (1) Pneumonia: (2) Hilar adenopathy: -Continue to med surg with tele - Check cbc, cmp, - blood cultures x 2 -24 hours x 2, follow-up acid-fast smear, acid-fast culture, Gram stain, bronchoalveolar lavage culture Gram stain final, - sputum culture lactic acid, procalcitonin 0.12 - Continue antibiotics -Speech consult placed for dysphagia - CT chest completed at OSH - send image for upload into PACs system - Pulmonary consultation for bronchoscopy/biopsy - Discussed with Dr. Magallanes via phone bronchoscopy on Friday. - Continue holding Bedolla for the procedure - IV abx with cefepime - pt does not remember allergic reaction to pcn as this happened a very long time ago. - MRSA swab -continue doxycycline - Tessalon pearls, mucinex, flutter, incentive spirometry, duonebs QID and Q2H prn - Continue Symbicort - Continue prednisone 40 mg one, now - monitor response - CTPE of the chest from OSH showing extensive adenopathy, masslike adenopathy in the right hilar region encasing the vessels and vascular structures. This is likely causing post obstructive pneumonia in the right lung. There are also areas of ground glass attenuation in the left lung which are not apparent on plain film. Differential diagnosis includes lung primary tumors as well as lymphoma. No pulmonary embolism -Heart healthy diet (3) CAD (coronary artery disease): Continue furosemide 40 mg p.o. every morning, isosorbide mononitrate 30 mg p.o. every morning potassium chloride 10 mg p.o. daily. Present on Admission?: Yes (4) HTN (hypertension): As the above and aspirin 81 Present on Admission?: Yes (5) HLD (hyperlipidemia): Atorvastatin 40 mg p.o. nightly (6) A-fib: - Continue on xarelto for now, will hold if pulmonology plans to do procedure (7) Hx of myocardial infarction: - Occurred in 2006 - Follows with cardiology, Dr. Sanchez, as outpatient routinely (8) ICD (implantable cardioverter-defibrillator) in place: (9) Cardiac defibrillator in place: - Continue asa 81 mg HS, atorvastatin 40 mg HS, carvedilol 12.5 mg BID, ramipril 10 mg BID, imdur 30 mg QAM and xarelto 20 mg QAM - Consider cardiology consultation (10) Anemia: - Consult heme/onc for severe anemia as well as pulmonary hilar adenopathy - Hgb dropped from 12.7 to 8.6 from OSH records, and source is unknown at this time unless underlying malignancy - Recheck hgb at 2200 - Heme check all stools, UA - Blood consent to be obtained by attending - Check type and screen - Known hx of hemmohoids, but he reports not currently an issue - Hx of diverticulitis which required transfusion in the past (11) Alcohol use: - Last drink was on 02/22, pt reports drinking 2 beers daily. He denies dependence, monitor for signs of withdrawal. (12) DVT prophylaxis: -teds, scds, xarelto Disposition: From home, transferred from [facility], will remain in the hospital for at least 2 day Time spent between direct patient care, discussion with family, coordination with other consultants, med rec, chart review, and other means of reviewing the care for Mr. Lamb was 126 minutes. (13) Diverticulosis: - Hx of diverticulitis requiring blood transfusion in the past. Pt denies abd pain, cramping and blood in stool. - Guiac all stools Subjective Patient seen and examined at the bedside. Patient is today n.p.o. after midnight for bronchoscopy with biopsy as requested per oncology. Patient is afebrile. He is resting in the bed. Patient has defibrillator and he is on Xarelto. Xarelto is on hold since patient is in the hospital because of the procedure. Patient is on 2 L of oxygen. Patient denies fever chills chest pain shortness of breath abdominal pain frequency urgency hemoptysis hematuria or dysuria or melena. Review of Systems Review of Systems: All systems reviewed & are unremarkable except as noted in HPI & below Physical Exam Constitutional: WD/WN, vitals as above well developed and + obese Eyes: PERRL, conjunctivae normal, anicteric sclerae ENMT: external ear and nose normal, oropharynx normal Neck: trachea midline, no thyromegaly Respiratory: Auscultation: + crackles, + wheezes and + bronchovesicular breath sounds Cardiovascular: RRR, no murmur, no edema Chest (Breasts): normal inspection/palpation of breasts Gastrointestinal (Abdomen): normal bowel sounds, soft, nontender, no hepatosplenomegaly Musculoskeletal: no cyanosis or clubbing, extremities motor strength 5/5 Skin: no rashes, warm and dry Neurologic: patellar DTR's 2+ bilat, sensation intact Psychiatric: A+Ox3, euthymic affect Genitourinary: no testicular masses, no penis abnormality Lymphatic: no cervical or axillary lymphadenopathy Results & Data Vital Signs (Past 12 Hours) Vital Signs Temp Pulse Pulse Resp BP BP Pulse Ox 02/25/19 16:15 36.5 C 70 20 120/72 91 02/25/19 15:45 70 17 134/78 100 02/25/19 15:35 36.3 C L 70 22 116/70 91 02/25/19 15:20 70 21 123/72 90 02/25/19 15:10 70 22 125/76 98 02/25/19 15:00 70 17 120/69 96 02/25/19 14:52 36.4 C L 86 25 H 101/83 95 02/25/19 12:29 36.4 C L 72 18 125/81 93 02/25/19 11:29 36.5 C 71 18 117/68 100 02/25/19 11:09 82 18 96 02/25/19 07:27 36.6 C 74 18 136/86 92 02/25/19 07:22 77 20 92 PG Care Time/CCT Total # of Minutes Spent Total Time Spent with Patient: Total time spent is greater than 50% in coordination of care (as documented) at patient's floor/unit and/or counseling patient: (1) Anemia Anemia type: unspecified type Qualified Code(s): D64.9 - Anemia, unspecified
--- NOTE | 2019-02-25 19:43 | Procedure Note ---
Procedure Note: Bronchoscopy Procedure After informed consent, the patient was prepped with lidocaine using nebulizer, spray, and jelly. Supplemental oxygen was applied. Pulse oximetry and telemetry remained stable throughout the procedure. The bronchoscope was passed via the endotracheal tubes without difficulty. The trachea black and bilateral bronchial tree was inspected with no significant lesions or mucus seen. BAL with 120 mL's of saline was instilled in the right middle lobe. I returned to 35 mL's was seen. The fluid was red- tinged. Then performed sequential aliquots with 20 mL's x3 in the right upper lobe which demonstrated nonclearing of the fluid was aspirated back. The fluid was red-tinged. We then transition to the endobronchial ultrasound scope and performed biopsies from station 7 and 4R. 4 passes of station 7 were performed and only one was determined to be of diagnostic yield. 3 passes of station 4R were performed with no diagnostic yield. The scope was then withdrawn and the regular scope was introduced. There is no significant airway bleeding seen. Scope was withdrawn patient tolerated the procedure well. Await final results of pathology. Likely the FNA passes of the lymph nodes were inadequate and he may require to be rebiopsied in the near future.
[2019-02-26] MEDS: CEFEPIME 2,000 MG in SYRINGE 7.5 ML IV SCH ×3 (01:45→18:28)
[2019-02-26] MEDS: ALBUT/IPRATROP 3MG/0.5MG NEB 3 ML VIAL NEB SCH ×6 (03:06→23:24)
[2019-02-26 06:26] LABS: Hematocrit (blood only) 28.1 % (42-52); Hemoglobin 8.7 g/dL (14.0-18.0); Mean Corpuscular Hemoglobin 27.9 pg (25-34); Mean Corpuscular Volume 90.1 fL (80-100); Mean Platelet Volume 10.2 fL (7.4-10.4); Platelet Count 350 K/uL (130-400); RDW Coefficient of Variation 16.1 % (11.5-14.5); RDW Standard Deviation 52.6 fL (36.4-46.3); Red Blood Count 3.12 M/uL (4.7-6.1); Reticulocyte % 2.6 % (0.5-2.0); Reticulocytes # 0.08 10^6/uL (0.02-0.10); White Blood Count 8.54 K/uL (4.8-10.8)
[2019-02-26 06:59] LABS: Albumin Level 2.4 gm/dl (3.4-5.0); BUN Creatinine Ratio 19.5 (10-20); Calcium 8.7 mg/dl (8.5-10.1); Creatinine Clr Calc Pharmacy 59.2 ml/min; Est GFR (African American) 80.5; Est GFR (Non-African American) 69.4; Potassium 4.3 mmol/L (3.5-5.1)
[2019-02-26 07:30] LABS: Albumin Globulin Ratio 0.6 (0.9-2); Bilirubin,Total 0.6 mg/dl (0.2-1); Globulin 4.1 gm/dl (2.5-4.0); Thyroid Stimulating Hormone 0.44 uIu/ml (0.300-4.500); Total Protein 6.5 gm/dl (6.4-8.2)
--- NOTE | 2019-02-26 07:31 | Anesthesiology Progress Note ---
Date of Service February 26, 2019 Anesthesia Post Procedure Vital Signs Vital Signs: Temp Pulse Pulse Pulse Resp BP Pulse Ox 02/26/19 07:27 36.4 C L 80 17 136/75 94 02/26/19 03:59 36.4 C L 75 18 121/74 93 02/26/19 03:07 70 17 91 02/25/19 23:03 71 16 96 02/25/19 22:28 36.3 C L 82 18 124/75 94 02/25/19 20:02 98 H 16 97 02/25/19 17:45 70 02/25/19 17:24 36.5 C 73 20 129/82 92 02/25/19 16:15 36.5 C 70 20 120/72 91 02/25/19 15:45 70 17 134/78 100 02/25/19 15:35 36.3 C L 70 22 116/70 91 02/25/19 15:20 70 21 123/72 90 02/25/19 15:10 70 22 125/76 98 02/25/19 15:00 70 17 120/69 96 02/25/19 14:52 36.4 C L 86 25 H 101/83 95 02/25/19 12:29 36.4 C L 72 18 125/81 93 02/25/19 11:29 36.5 C 71 18 117/68 100 02/25/19 11:09 82 18 96 Notes Mental Status: alert / awake / arousable and participated in evaluation Patient Amnestic to Procedure: Yes Nausea / Vomiting: adequately controlled Pain: adequately controlled Airway Patency, RR, SpO2: stable & adequate BP & HR: stable & adequate Hydration State: stable & adequate Anesthetic Complications: Pt Satisfied with anesthetic care
[2019-02-26] MEDS: FUROSEMIDE 40 MG TAB PO SCH (08:08)
[2019-02-26] MEDS: guaiFENesin 600 MG TABCR PO SCH ×2 (08:09→20:56)
[2019-02-26] MEDS: BENZONATATE 100 MG CAPSULE PO SCH ×3 (08:10→20:57)
[2019-02-26] MEDS: BUDESONIDE/FORMOTEROL FUMARATE 80/4.5 60 PUFFS/INHALER INH SCH ×2 (08:14→20:57)
[2019-02-26] MEDS ORDERED: SODIUM CHLORIDE 0.9% 250 ML IV PRN (09:30)
[2019-02-26] MEDS: DOXYCYCLINE HYCLATE 100 MG in DEXTROSE 5% 100 ML IV SCH (09:53)
--- NOTE | 2019-02-26 18:43 | Pulmonology Progress Note ---
Date of Service February 26, 2019 Assessment & Plan (1) Mediastinal lymphadenopathy: Pathology has resulted and station 7 (subcarinal lymph node) and station 4R (paratracheal lymph node) are both negative for any evidence of malignancy. These nodes are likely reactive secondary to an inflammatory process. Malignancy can still not be completely excluded but it is deemed less likely given the lack of any discrete masses seen in the lung or mediastinal region and the negative pathology. (2) Right upper lobe pulmonary infiltrate: This may represent a pneumonic or inflammatory process. Recommend a course of steroids for a total of 10 days and 30 mg daily. Recommended total course of 7 days of antibiotics. He needs a follow-up noncontrast CT scan in 6 weeks. He needs baseline PFTs as an outpatient. He should follow-up with me in 6 weeks as an outpatient. (3) Acute hypoxemic respiratory failure: Echo report reviewed. He has a normal EF. He does have mild to moderate increase in pulmonary arterial systolic pressure. He does have some LA dilation which may be customer account representative of some diastolic dysfunction. (4) A-fib: It is safe to restart anticoagulation from a pulmonary perspective. (5) Anemia: Follow-up with oncology. Anemia type: unspecified type Qualified Code(s): D64.9 - Anemia, unspecified Subjective Patient is sitting in his chair. Is able to ambulate around the hallway. Denies any hemoptysis postprocedure. He denies any nausea or vomiting. No fevers. No chills. Mild occasional cough. Physical Exam Constitutional: well developed Eyes: PERRL, conjunctivae normal, anicteric sclerae EOM intact bilaterally ENMT: Ears: + hearing impairment Neck: trachea midline, no thyromegaly Respiratory: no audible wheezes Cardiovascular: RRR, no murmur, no edema Palpation: normal PMI Gastrointestinal (Abdomen): Inspection/Auscultation: abdomen normal to inspection; no abdominal edema Musculoskeletal: Head/Neck/Chest: normocephalic and neck supple Lymphatic: no cervical or axillary lymphadenopathy Results & Data Vital Signs (Past 12 Hours) Vital Signs Temp Pulse Pulse Pulse Resp BP BP 02/26/19 16:00 97.9 F 71 18 129/75 02/26/19 15:55 98.2 F 76 18 116/69 02/26/19 15:45 97.9 F 68 17 121/73 02/26/19 15:12 77 18 02/26/19 15:00 97.9 F 68 18 121/73 02/26/19 14:00 97.9 F 73 18 108/64 02/26/19 13:00 97.7 F 94 H 18 135/72 02/26/19 12:30 97.9 F 76 18 130/77 02/26/19 12:15 95.9 F L 97 H 17 116/66 02/26/19 11:59 98.4 F 81 18 129/76 02/26/19 11:28 97.9 F 90 17 112/67 02/26/19 10:41 84 18 02/26/19 07:27 97.5 F L 80 17 136/75 02/26/19 07:10 85 18 Pulse Ox 02/26/19 16:00 97 02/26/19 15:55 96 02/26/19 15:45 94 02/26/19 15:12 97 02/26/19 15:00 94 02/26/19 14:00 94 02/26/19 13:00 96 02/26/19 12:30 97 02/26/19 12:15 92 02/26/19 11:59 94 02/26/19 11:28 95 02/26/19 10:41 97 02/26/19 07:27 94 02/26/19 07:10 96 PG Care Time/CCT Total # of Minutes Spent Total Time Spent with Patient: Total time spent is greater than 50% in coordination of care (as documented) at patient's floor/unit and/or counseling patient:
[2019-02-27] MEDS: CEFEPIME 2,000 MG in SYRINGE 7.5 ML IV SCH ×3 (01:33→17:02)
[2019-02-27] MEDS: ALBUT/IPRATROP 3MG/0.5MG NEB 3 ML VIAL NEB SCH ×6 (03:50→23:22)
[2019-02-27] MEDS: FUROSEMIDE 40 MG TAB PO SCH (08:24)
[2019-02-27] MEDS: BUDESONIDE/FORMOTEROL FUMARATE 80/4.5 60 PUFFS/INHALER INH SCH ×2 (08:25→20:11)
[2019-02-27] MEDS: guaiFENesin 600 MG TABCR PO SCH ×2 (08:25→20:11)
[2019-02-27] MEDS: BENZONATATE 100 MG CAPSULE PO SCH ×3 (08:25→20:11)
[2019-02-27] MEDS ORDERED: FUROSEMIDE 20 MG in SYRINGE 0 ML IV ONE (11:00)
--- NOTE | 2019-02-27 11:06 | XRay Report ---
XR chest 2V routine CLINICAL HISTORY: Right pleural effusion. COMPARISON STUDY: Chest CT and chest radiograph February 23, 2019. FINDINGS: Left subclavian pacer/AICD, median sternotomy wires and mediastinal surgical clips are noted. There is no pneumothorax. Trace right pleural effusion is noted. Cardiomegaly is noted. Bilateral opacities and interstitial thickening persists. IMPRESSION: No significant change in bilateral airspace opacities which favor pneumonia. Pulmonary edema could appear similar although is considered less likely. Electronically signed by: Brent Pacheco M.D. 02/27/2019 11:04 AM SAL[facility]ADOR
[2019-02-27] MEDS: DOXYCYCLINE HYCLATE 100 MG CAP PO SCH ×2 (11:33→20:11)
[2019-02-27] MEDS ORDERED: BISACODYL 10 MG SUPP PR PRN (13:20)
[2019-02-27] MEDS ORDERED: POLYETHYLENE (MIRALAX) 17 GM PACK PO PRN (13:20)
[2019-02-27] MEDS ORDERED: DOCUSATE SODIUM 100 MG CAP PO PRN (13:22)
[2019-02-27] MEDS ORDERED: DOCUSATE SODIUM/SENNA 50/8.6MG TAB PO PRN (13:23)
--- NOTE | 2019-02-27 13:26 | Hospitalist Progress Note ---
Date of Service February 27, 2019 Assessment & Plan (1) Pneumonia: (2) Hilar adenopathy: - Continue to med surg with tele - Check cbc, cmp, - blood cultures x 2 negative 48 hours x 2, - The report of thoraco-pulmonary who performed bronchoscopy and pathology report malignancy is less likely and more pneumonic or inflammatory process. He recommended 10 days of steroids 30 mg daily and course of antibiotics for 7 days he also recommended to follow-up with noncontrast CT in 6 weeks and to do PFT as an outpatient. He will follow him up in 6-week weeks as an outpatient. Restarted his Xarelto for A. fib's. - Continue antibiotics -Speech consult placed for dysphagia - CT chest completed at OSH - send image for upload into PACs system - IV abx with cefepime - pt does not remember allergic reaction to pcn as this happened a very long time ago. - MRSA swab -continue doxycycline - Tessalon pearls, mucinex, flutter, incentive spirometry, duonebs QID and Q2H prn - Continue Symbicort - Continue prednisone 40 mg one, now - monitor response - Heart healthy diet (3) CAD (coronary artery disease): Continue furosemide 40 mg p.o. every morning, isosorbide mononitrate 30 mg p.o. every morning potassium chloride 10 mg p.o. daily. (4) HTN (hypertension): As the above and aspirin 81 (5) HLD (hyperlipidemia): Atorvastatin 40 mg p.o. nightly (6) A-fib: - RESTARTED xarelto (7) Hx of myocardial infarction: - Occurred in 2006 - Follows with cardiology, Dr. 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 He denies dependence, monitor for signs of withdrawal. (12) DVT prophylaxis: -teds, scds, xarelto Disposition: From home, transferred from [facility], will remain in the hospital for at least 2 day Time spent between direct patient care, discussion with family, coordination with other consultants, med [facility], chart review, and other means of reviewing the care for Mr. Lamb was 126 minutes. (13) Diverticulosis: - Hx of diverticulitis requiring blood transfusion in the past. Pt denies abd pain, cramping and blood in stool. - Guiac all stools Subjective Patient seen and examined at the bedside. Patient is slowly improving. At rest he does not need oxygen but if he walks around he need at least 2 L of O2 to be above 92%. Patient had bronchoscopy on which he tolerated very well. The report of thoraco-pulmonary who performed bronchoscopy and pathology report malignancy is less likely and more pneumonic or inflammatory process. He recommended 10 days of steroids 30 mg daily and course of antibiotics for 7 days he also recommended to follow-up with noncontrast CT in 6 weeks and to do PFT as an outpatient. He will follow him up in 6-week weeks as an outpatient. Restart his Xarelto for A. fib's.Patient denies fever chills chest pain shortness of breath abdominal pain frequency urgency hemoptysis hematuria or dysuria or melena. Review of Systems Review of Systems: All systems reviewed & are unremarkable except as noted in HPI & below Physical Exam Constitutional: WD/WN, vitals as above well developed and + obese Eyes: PERRL, conjunctivae normal, anicteric sclerae ENMT: external ear and nose normal, oropharynx normal Neck: trachea midline, no thyromegaly Respiratory: Auscultation: + crackles, + wheezes and + bronchovesicular breath sounds Cardiovascular: RRR, no murmur, no edema Chest (Breasts): normal inspection/palpation of breasts Gastrointestinal (Abdomen): normal bowel sounds, soft, nontender, no hepatosplenomegaly Musculoskeletal: no cyanosis or clubbing, extremities motor strength 5/5 Skin: no rashes, warm and dry Neurologic: patellar DTR's 2+ bilat, sensation intact Psychiatric: A+Ox3, euthymic affect Genitourinary: no testicular masses, no penis abnormality Lymphatic: no cervical or axillary lymphadenopathy Results & Data Vital Signs (Past 12 Hours) Vital Signs Temp Pulse Pulse Pulse Pulse Pulse Pulse 02/27/19 11:51 36.6 C 81 02/27/19 11:08 82 02/27/19 09:45 88 74 91 H 90 02/27/19 09:00 76 02/27/19 07:47 36.3 C L 74 02/27/19 07:12 75 02/27/19 03:08 36.6 C 83 Pulse Resp Resp Resp Resp Resp Resp 02/27/19 11:51 18 02/27/19 11:08 18 02/27/19 09:45 77 20 20 20 20 18 02/27/19 09:00 02/27/19 07:47 18 02/27/19 07:12 14 02/27/19 03:08 20 BP Pulse Ox Pulse Ox Pulse Ox Pulse Ox Pulse Ox Pulse Ox 02/27/19 11:51 124/67 96 02/27/19 11:08 97 02/27/19 09:45 85 L 91 86 L 93 93 02/27/19 09:00 02/27/19 07:47 151/81 H 97 02/27/19 07:12 84 L 02/27/19 03:08 136/86 98 PG Care Time/CCT Total # of Minutes Spent Total Time Spent with Patient: Total time spent is greater than 50% in coordination of care (as documented) at patient's floor/unit and/or counseling patient: (1) Anemia Anemia type: unspecified type Qualified Code(s): D64.9 - Anemia, unspecified
[2019-02-27] MEDS: RIVAROXABAN 20 MG TAB PO SCH (14:18)
[2019-02-27] MEDS: predniSONE 10 MG TABLET PO SCH (14:18)
[2019-02-28] MEDS: CEFEPIME 2,000 MG in SYRINGE 7.5 ML IV SCH ×3 (01:19→17:46)
[2019-02-28] MEDS: ALBUT/IPRATROP 3MG/0.5MG NEB 3 ML VIAL NEB SCH ×6 (03:06→22:44)
[2019-02-28] MEDS: BUDESONIDE/FORMOTEROL FUMARATE 80/4.5 60 PUFFS/INHALER INH SCH ×2 (08:32→20:45)
[2019-02-28] MEDS: FUROSEMIDE 20 MG in SYRINGE 0 ML IV SCH ×3 (08:32→20:51)
[2019-02-28] MEDS: BENZONATATE 100 MG CAPSULE PO SCH ×3 (08:32→20:45)
[2019-02-28] MEDS: DOXYCYCLINE HYCLATE 100 MG CAP PO SCH ×2 (08:32→20:46)
[2019-02-28] MEDS: predniSONE 10 MG TABLET PO SCH (08:32)
[2019-02-28] MEDS: RIVAROXABAN 20 MG TAB PO SCH (08:33)
[2019-02-28] MEDS: guaiFENesin 600 MG TABCR PO SCH ×2 (09:58→20:46)
--- NOTE | 2019-02-28 12:16 | Hematology/Oncology Prog Note ---
Date of Service February 28, 2019 Assessment & Plan (1) Mediastinal lymphadenopathy: Mr. Lamb's EBUS and biopsies did not reveal evidence of malignancy, but the sample was small. Based on the very concerning appearance of his CT, I would not feel comfortable saying he does not have cancer based on these findings. I will review his case with thoracic surgery and perhaps at tumor board, to determine the best next step to obtain tissue. However, this workup does not necessarily need to take place in the hospital if he is otherwise ready for discharge. I will make arrangements for him to see me in the office and will work on a plan for another biopsy. Present on Admission?: Yes Subjective Mr. Lamb is feeling better. His breathing has improved and he denies any OTERO or chest pain. He's still using 2L of [place] oxygen, though he doesn't feel he needs it. He denies any pain, fevers, or sweats. Review of Systems Review of Systems: All systems reviewed & are unremarkable except as noted in HPI & below Physical Exam Constitutional: average body habitus and comfortable; no acute distress ENMT: external ear and nose normal, oropharynx normal Respiratory: normal respiratory effort, lungs clear to auscultation Cardiovascular: RRR, no murmur, no edema Gastrointestinal (Abdomen): Inspection/Auscultation: normal bowel sounds Percussion/Palpation: abdomen soft; abdomen nontender Skin: no rashes, warm and dry Psychiatric: A+Ox3, euthymic affect Results & Data Vital Signs (Past 12 Hours) Vital Signs Temp Pulse Pulse Resp BP BP Pulse Ox 02/28/19 12:07 36.7 C 78 18 127/75 95 02/28/19 10:57 72 16 97 02/28/19 09:00 97 H 02/28/19 08:06 36.5 C 81 18 126/72 97 02/28/19 07:09 72 14 98 02/28/19 04:00 36.4 C L 75 18 142/83 H 91 Laboratory Results I reviewed his pathology findings. They did not reveal evidence of malignancy, but most of the passes were inadequate for diagnosis.
--- NOTE | 2019-02-28 14:38 | Hospitalist Progress Note ---
Date of Service February 28, 2019 Assessment & Plan (1) Pneumonia: (2) Hilar adenopathy: - Continue to med surg with tele - continue check cbc, cmp, - blood cultures x 2 negative 72hours x 2, - Xarelto for A. fib's. - Continue antibiotics - Speech consult placed for dysphagia - CT chest completed at OSH - send image for upload into PACs system - IV abx with cefepime - pt does not remember allergic reaction to pcn as this happened a very long time ago. - MRSA swab -continue doxycycline - Tessalon pearls, mucinex, flutter, incentive spirometry, duonebs QID and Q2H prn - Continue Symbicort - Continue prednisone 40 mg one, now - monitor response - Heart healthy diet -Patient continues to need oxygen 2 L -We will need to steps and arrangements for oxygen on discharge -Patient is also followed by Dr. Snyder who recommended to discuss this case at tumor board for possible mediastinoscopy and final biopsy of the lymph nodes in his lungs. -Full code (3) CAD (coronary artery disease): Continue furosemide 40 mg p.o. every morning, isosorbide mononitrate 30 mg p.o. every morning potassium chloride 10 mg p.o. daily. (4) HTN (hypertension): As the above and aspirin 81 (5) HLD (hyperlipidemia): Atorvastatin 40 mg p.o. nightly (6) A-fib: - xarelto (7) Hx of myocardial infarction: - Occurred in 2006 - Follows with cardiology, Dr. Sanchez, as outpatient routinely (8) ICD (implantable cardioverter-defibrillator) in place: (9) Cardiac defibrillator in place: - Continue asa 81 mg HS, atorvastatin 40 mg HS, carvedilol 12.5 mg BID, ramipril 10 mg BID, imdur 30 mg QAM and xarelto 20 mg QAM - Consider cardiology consultation (10) Anemia: - Consult heme/onc for severe anemia - H/H stable, given 1 unit of blood - Heme check all stools, UA - Blood consent to be obtained - Known hx of hemmohoids, but he reports not currently an issue - Hx of diverticulitis which required transfusion in the past - Continue monitoring H&H (11) Alcohol use: - Last drink was on 02/22, pt reports drinking 2 beers daily. He denies dependence, monitor for signs of withdrawal. (12) DVT prophylaxis: -teds, scds, xarelto Disposition: From home, transferred from [facility], will remain in the hospital for at least 2 day Time spent between direct patient care, discussion with family, coordination with other consultants, med rec, chart review, and other means of reviewing the care for Mr. Lamb was 126 minutes. (13) Diverticulosis: - Hx of diverticulitis requiring blood transfusion in the past. Pt denies abd pain, cramping and blood in stool. - Guiac all stools Subjective Patient seen and examined at the bedside. Patient is slowly improving. Patient is not ready for the discharge yet and would need to steps especially if his need for oxygen will continue when he goes home. Patient does not have oxygen at home and he never used it before. The case was in addition discussed with Dr. Snyder hematology and oncology and he would discuss this case at tumor board for possible mediastinoscopy. Patient denies fever chills chest pain shortness of breath abdominal pain frequency urgency hemoptysis hematuria or dysuria or melena. Review of Systems Review of Systems: All systems reviewed & are unremarkable except as noted in HPI & below Physical Exam Constitutional: WD/WN, vitals as above well developed and + obese Eyes: PERRL, conjunctivae normal, anicteric sclerae ENMT: external ear and nose normal, oropharynx normal Neck: trachea midline, no thyromegaly Respiratory: Auscultation: + crackles, + wheezes and + bronchovesicular breath sounds Cardiovascular: RRR, no murmur, no edema Chest (Breasts): normal inspection/palpation of breasts Gastrointestinal (Abdomen): normal bowel sounds, soft, nontender, no hepatosplenomegaly Musculoskeletal: no cyanosis or clubbing, extremities motor strength 5/5 Skin: no rashes, warm and dry Neurologic: patellar DTR's 2+ bilat, sensation intact Psychiatric: A+Ox3, euthymic affect Genitourinary: no testicular masses, no penis abnormality Lymphatic: no cervical or axillary lymphadenopathy Results & Data Vital Signs (Past 12 Hours) Vital Signs Temp Pulse Pulse Resp BP BP Pulse Ox 02/28/19 12:07 36.7 C 78 18 127/75 95 02/28/19 10:57 72 16 97 02/28/19 09:00 97 H 02/28/19 08:06 36.5 C 81 18 126/72 97 02/28/19 07:09 72 14 98 02/28/19 04:00 36.4 C L 75 18 142/83 H 91 PG Care Time/CCT Total # of Minutes Spent Total Time Spent with Patient: Total time spent is greater than 50% in coordination of care (as documented) at patient's floor/unit and/or counseling patient: (1) Anemia Anemia type: unspecified type Qualified Code(s): D64.9 - Anemia, unspecified
[2019-03-01] MEDS: CEFEPIME 2,000 MG in SYRINGE 7.5 ML IV SCH ×2 (02:21→09:39)
[2019-03-01] MEDS: ALBUT/IPRATROP 3MG/0.5MG NEB 3 ML VIAL NEB SCH ×4 (03:19→15:25)
[2019-03-01 05:52] LABS: Basophils # (auto) 0.03 K/uL (0-0.2); Basophils % (auto) 0.3 %; Eosinophils # (auto) 0.18 K/uL (0-0.5); Eosinophils % (auto) 1.5 %; Hematocrit (blood only) 32.3 % (42-52); Hemoglobin 10.5 g/dL (14.0-18.0); Immature Granulocytes # (auto) 0.09 K/uL (0.00-0.02); Immature Granulocytes % (auto) 0.8 %; Lymphocytes # (auto) 1.68 K/uL (1.2-3.4); Mean Corpuscular Hemoglobin 28.5 pg (25-34); Mean Corpuscular Hgb Conc 32.5 g/dL (32-36); Mean Corpuscular Volume 87.8 fL (80-100); Mean Platelet Volume 10.1 fL (7.4-10.4); Monocytes # (auto) 0.98 K/uL (0.11-0.59); Monocytes % (auto) 8.2 %; Neutrophils # (auto) 9.03 K/uL (1.4-6.5); Neutrophils % (auto) 75.2 %; Platelet Count 384 K/uL (130-400); RDW Coefficient of Variation 16.2 % (11.5-14.5); RDW Standard Deviation 53.1 fL (36.4-46.3); Red Blood Count 3.68 M/uL (4.7-6.1); White Blood Count 11.99 K/uL (4.8-10.8)
[2019-03-01 06:21] LABS: Albumin Level 2.7 gm/dl (3.4-5.0); BUN Creatinine Ratio 23.5 (10-20); Calcium 8.9 mg/dl (8.5-10.1); Est GFR (African American) 93.4; Est GFR (Non-African American) 80.6; Potassium 3.5 mmol/L (3.5-5.1)
[2019-03-01 06:26] LABS: Albumin Globulin Ratio 0.7 (0.9-2); Bilirubin,Total 0.5 mg/dl (0.2-1); Globulin 3.7 gm/dl (2.5-4.0); Total Protein 6.4 gm/dl (6.4-8.2)
[2019-03-01] MEDS: predniSONE 10 MG TABLET PO SCH (08:14)
[2019-03-01] MEDS: FUROSEMIDE 20 MG in SYRINGE 0 ML IV SCH (08:14)
[2019-03-01] MEDS: BENZONATATE 100 MG CAPSULE PO SCH ×2 (08:14→13:51)
[2019-03-01] MEDS: BUDESONIDE/FORMOTEROL FUMARATE 80/4.5 60 PUFFS/INHALER INH SCH (08:14)
[2019-03-01] MEDS: DOXYCYCLINE HYCLATE 100 MG CAP PO SCH (08:14)
[2019-03-01] MEDS: RIVAROXABAN 20 MG TAB PO SCH (08:15)
--- NOTE | 2019-03-01 09:19 | Progress Note ---
DATE: 03/01/2019 MEDICAL ONCOLOGY PROGRESS NOTE DIAGNOSES: 1. Pneumonia. 2. Hilar/mediastinal lymphadenopathy. 3. Coronary artery disease. 4. Anemia. 5. Alcohol abuse. SUBJECTIVE: Mr. Lamb is an 79-year-old gentleman now on hospital day 6, transferred from [facility] in [place] to our facility for management of pneumonia and mediastinal lymphadenopathy. Apparently, Mr. Lamb underwent EBUS and FNA at [facility] which unfortunately did not yield adequate diagnostic information. He was originally seen by Dr. Snyder and recommended a thoracic surgery consult to obtain further tissue. Dr. Chavez happened to come in when I was interviewing Hari this morning and explained he would like to have Mr. Lmab undergo a mediastinoscopy with new tool to obtain adequate diagnostic tissue. Mr. Lamb thought he was going home today and quite possibly still may be discharged. He has been afebrile. His breathing has improved. Tolerating regular diet, moving his bowels regularly. Nursing reports no overnight difficulties otherwise. OBJECTIVE: GENERAL: A very pleasant 79-year-old gentleman in no acute distress. VITAL SIGNS: Temperature 36.4, pulse 71, respiratory rate 16, blood pressure 130/78. SKIN: Without rash or lesion. HEENT: Oral mucosa without erythema or ulceration. NECK: Supple. HEART: Regular rate and rhythm. LUNGS: Crackles bilateral bases heard posteriorly. ABDOMEN: Soft, nontender, nondistended. EXTREMITIES: Trace peripheral edema, bilateral lower extremities. LABORATORY DATA: WBC count 11,990, hemoglobin 10.5, platelet count 384,000. Sodium 141, potassium 3.5, chloride 105, carbon dioxide 29, creatinine 0.88, BUN 21, albumin 2.7. RADIOGRAPHIC DATA: Chest x-ray performed on 02/27, no significant change, bilateral airspace opacities which favor pneumonia. IMPRESSION: 1. Pneumonia. 2. Mediastinal lymphadenopathy. 3. Hypoalbuminemia. 4. Anemia. PLAN: Today is my first day on the service and came to check on progress of Mr. Lamb. Dr. Chavez happened to come in to the room during my encounter this morning and is recommending a mediastinoscopy with rebiopsy. Dr. Chavez provided the option of having him stay and scheduled procedure for tomorrow morning versus an outpatient appointment. We will ensure that Mr. Lamb follows up with Dr. Snyder as we suspect he may suffer from either a lymphoproliferative or neoplastic process. Clinically, seems to be doing much better, and from an oncologic standpoint, I have no reason to keep him here per se. I have nothing further to add and will officially sign off and inform Dr. Snyder of Mr. Lamb's progress.
[2019-03-01] MEDS: guaiFENesin 600 MG TABCR PO SCH (09:39)
--- NOTE | 2019-03-01 11:45 | Hospitalist Progress Note ---
Date of Service March 01, 2019 Assessment & Plan (1) Pneumonia: (2) Hilar adenopathy: -pt is requesting to go home today -He and his said he is going to schedule appointment with next week to have lung lymph node biopsy. -Patient understands that his refusal of the procedure will delay the diagnosis. - blood cultures x 2 negative 72hours x 2, - Xarelto for A. fib's. - Continue antibiotics - switched to Levaquin 750 mg PO daily for home. Pt notified that his WBC are elevated today to 11k , but he wants to be d/c home - CT chest completed at OSH - send image for upload into PACs system - Tessalon pearls, mucinex, flutter, incentive spirometry, duonebs QID and Q2H prn - Continue Symbicort - Continue prednisone 30 mg for 7 more days. - Heart healthy diet - Patient continues to need oxygen 3 L, 2 steps done. - We will need to steps and arrangements for oxygen on discharge - Patient is also followed by Dr. Snyder who recommended to discuss this case at tumor board for possible mediastinoscopy and final biopsy of the lymph nodes in his lungs. -Full code (3) CAD (coronary artery disease): Continue furosemide 40 mg p.o. every morning, isosorbide mononitrate 30 mg p.o. every morning potassium chloride 10 mg p.o. daily. (4) HTN (hypertension): As the above and aspirin 81 (5) HLD (hyperlipidemia): Atorvastatin 40 mg p.o. nightly (6) A-fib: - xarelto (7) Hx of myocardial infarction: - Occurred in 2006 - Follows with cardiology, Dr. Sanchez, as outpatient routinely (8) ICD (implantable cardioverter-defibrillator) in place: (9) Cardiac defibrillator in place: - Stable, Continue asa 81 mg HS, atorvastatin 40 mg HS, carvedilol 12.5 mg BID, ramipril 10 mg BID, imdur 30 mg QAM and xarelto 20 mg QAM (10) Anemia: - Consult heme/onc for severe anemia - H/H stable, 9.02/03 given 1 unit of blood - Heme check all stools, UA - Blood consent to be obtained - Known hx of hemmohoids, but he reports not currently an issue - Hx of diverticulitis which required transfusion in the past - Continue monitoring H&H (11) Alcohol use: - Last drink was on 02/22, pt reports drinking 2 beers daily. He denies dependence, monitor for signs of withdrawal. (12) DVT prophylaxis: -teds, scds, xarelto Disposition: From home, transferred from [facility], will remain in the hospital for at least 2 day (13) Diverticulosis: - Hx of diverticulitis requiring blood transfusion in the past. Pt denies abd pain, cramping and blood in stool. - Guiac all stools Subjective Patient seen and examined at the bedside. Patient is slowly improving. She had 2 steps evaluation and he needs 3 L of oxygen for home especially during the ambulation. He met with Dr. Ac this morning morning thoracic surgeon in regards of bronchoscopy and apparently he stated to that he wants this to be done as an outpatient. Upon results of the bronchoscopy he should meet with Dr. mark Calderon to discuss the results of the biopsy and for his anemia. Dr. Snyder recommended close follow-up of lymphadenopathy that was seen on the CT scan of patient lungs and cancer or possible lymphoma cannot be excluded at this point. This message was conveyed to patient and his . They stated they will follow up with both specialists and PCP. All questions are answered. Close follow-up with Dr. Corbett and Dr. Ac is of essence. Patient denies fever chills chest pain shortness of breath abdominal pain frequency urgency hemoptysis hematuria or dysuria or melena. Review of Systems Review of Systems: All systems reviewed & are unremarkable except as noted in HPI & below Physical Exam Constitutional: WD/WN, vitals as above well developed and + obese Eyes: PERRL, conjunctivae normal, anicteric sclerae ENMT: external ear and nose normal, oropharynx normal Neck: trachea midline, no thyromegaly Respiratory: normal respiratory effort Auscultation: + wheezes and + bronchovesicular breath sounds Cardiovascular: RRR, no murmur, no edema Chest (Breasts): normal inspection/palpation of breasts Gastrointestinal (Abdomen): normal bowel sounds, soft, nontender, no hepatosplenomegaly Musculoskeletal: no cyanosis or clubbing, extremities motor strength 5/5 Skin: no rashes, warm and dry Neurologic: patellar DTR's 2+ bilat, sensation intact Psychiatric: A+Ox3, euthymic affect Genitourinary: no testicular masses, no penis abnormality Lymphatic: no cervical or axillary lymphadenopathy Results & Data Vital Signs (Past 12 Hours) Vital Signs Temp Pulse Pulse Pulse Pulse Pulse Pulse 03/01/19 11:00 73 03/01/19 10:09 94 H 92 H 102 H 81 03/01/19 08:00 72 03/01/19 07:15 71 03/01/19 07:00 36.4 C L 69 03/01/19 05:49 79 03/01/19 04:00 36.7 C 69 03/01/19 03:19 70 Pulse Resp Resp Resp Resp Resp Resp 03/01/19 11:00 16 03/01/19 10:09 77 20 20 22 18 16 03/01/19 08:00 03/01/19 07:15 16 03/01/19 07:00 20 03/01/19 05:49 03/01/19 04:00 19 03/01/19 03:19 17 BP Pulse Ox Pulse Ox Pulse Ox Pulse Ox Pulse Ox Pulse Ox 03/01/19 11:00 91 03/01/19 10:09 86 L 91 84 L 90 91 03/01/19 08:00 03/01/19 07:15 94 03/01/19 07:00 130/78 98 03/01/19 05:49 03/01/19 04:00 149/89 H 94 03/01/19 03:19 93 PG Care Time/CCT Total # of Minutes Spent Total Time Spent with Patient: Total time spent is greater than 50% in coordination of care (as documented) at patient's floor/unit and/or counseling patient: (1) Anemia Anemia type: unspecified type Qualified Code(s): D64.9 - Anemia, unspecified
--- NOTE | 2019-03-01 15:02 | Discharge Summary ---
Date of Service March 01, 2019 Admission HPI Per Admitting Provider This is a 79 yo M with PMHx of HTN, afib on xarelto, HLD, hx of NM in 2007 s/o CABG x 3 and SARAH x 2 in 2006, pacemaker/ICD insertion in 2018, hemmorhoids with needs for blood transfusion and remote tobacco smoking over 30 years ago , and has been recently been being treated for pneumonia. He has failed outpatient antibiotics with azithromycin which he was placed on about 1 week ago. The patient was sent from [facility] as a direct admission for worsening shortness of breath, and new found hilar adenopathy on chest CT. At OSH he receive IV azithromycin and ceftriaxone. Pt transferred here as they do not have pul monology. Pt notes that he started specifically feeling worse about 1 week ago and his sx include generalized malaise, weakness, shortness of breath with exertion, and nonproductive cough. Pt then states that he has been progressively getting worse for "a while". He admits to a poor appetite, and his reports this has been going on for at least 6 months. She notes he has lost 10 lbs since last winter. Pt denies night sweats, chills, or fevers. Social Hx: He drinks alcohol routinely daily, 2 beers normally, and is asking to have a beer now. Lives at home with , who manages his medications Principal Diagnosis none Discharge Exam Constitutional WD/WN, vitals as above well developed and + obese Eyes PERRL, conjunctivae normal, anicteric sclerae ENMT external ear and nose normal, oropharynx normal Neck trachea midline, no thyromegaly Respiratory normal respiratory effort Auscultation: + wheezes and + bronchovesicular breath sounds Cardiovascular RRR, no murmur, no edema Chest (Breasts) normal inspection/palpation of breasts Gastrointestinal (Abdomen) normal bowel sounds, soft, nontender, no hepatosplenomegaly Musculoskeletal no cyanosis or clubbing, extremities motor strength 5/5 Skin no rashes, warm and dry Neurologic patellar DTR's 2+ bilat, sensation intact Psychiatric A+Ox3, euthymic affect Genitourinary no testicular masses, no penis abnormality Lymphatic no cervical or axillary lymphadenopathy Discharge Data Allergies Allergy/AdvReac Type Severity Reaction Status Date / Time adhesive Allergy Unknown Blister Verified 11/12/18 08:20 latex Allergy Unknown Blister Verified 11/12/18 08:20 Penicillins Allergy Unknown UNK Verified 11/12/18 08:20 Consultations 02/23/19 15:44 Consult Case Management - Discharge Planning Routine Consult Pulmonology Routine 02/23/19 16:30 Consult Oncology Routine Procedures Performed Operation Date: 02/25/19 11:00 Actual Procedures p Endobronchial Ultrasound, (Not Applicable) - Matthias Magallanes MD s Bronchoscopy, Lymph Node Biopsy(Not Applicable) - Matthias Magallanes MD Hospital Course (1) Pneumonia: (2) Hilar adenopathy: -pt is requesting to go home today -He and his said he is going to schedule appointment with next week to have lung lymph node biopsy. -Patient understands that his refusal of the procedure will delay the diagnosis. - blood cultures x 2 negative 72hours x 2, - Xarelto for A. fib's. - Continue antibiotics - switched to Levaquin 750 mg PO daily for home. Pt notified that his WBC are elevated today to 11k , but he wants to be d/c home - CT chest completed at OSH - send image for upload into PACs system - Tessalon pearls, mucinex, flutter, incentive spirometry, duonebs QID and Q2H prn - Continue Symbicort - Continue prednisone 30 mg for 7 more days. - Heart healthy diet - Patient continues to need oxygen 3 L, 2 steps done. - We will need to steps and arrangements for oxygen on discharge - Patient is also followed by Dr. Snyder who recommended to discuss this case at tumor board for possible mediastinoscopy and final biopsy of the lymph nodes in his lungs. -Full code (3) CAD (coronary artery disease): Continue furosemide 40 mg p.o. every morning, isosorbide mononitrate 30 mg p.o. every morning potassium chloride 10 mg p.o. daily. (4) HTN (hypertension): As the above and aspirin 81 (5) HLD (hyperlipidemia): Atorvastatin 40 mg p.o. nightly (6) A-fib: - xarelto (7) Hx of myocardial infarction: - Occurred in 2006 - Follows with cardiology, Dr. Sanchez, as outpatient routinely (8) ICD (implantable cardioverter-defibrillator) in place: (9) Cardiac defibrillator in place: - Stable, Continue asa 81 mg HS, atorvastatin 40 mg HS, carvedilol 12.5 mg BID, ramipril 10 mg BID, imdur 30 mg QAM and xarelto 20 mg QAM (10) Anemia: - Consult heme/onc for severe anemia - H/H stable, 9.02/03 given 1 unit of blood - Heme check all stools, UA - Blood consent to be obtained - Known hx of hemmohoids, but he reports not currently an issue - Hx of diverticulitis which required transfusion in the past - Continue monitoring H&H (11) Alcohol use: - Last drink was on 02/22, pt reports drinking 2 beers daily. He denies dependence, monitor for signs of withdrawal. (12) DVT prophylaxis: -teds, scds, xarelto Disposition: From home, transferred from [facility], will remain in the hospital for at least 2 day (13) Diverticulosis: - Hx of diverticulitis requiring blood transfusion in the past. Pt denies abd pain, cramping and blood in stool. - Guiac all stools Total Time Total Time Spent Total Time Spent (In Minutes): >35 min Discharge Plan Discharge Items Patient Disposition: Home - Self-Care Reason For Visit: PNEUMONIA, POSSIBLE ADENOPATHY Discharge Diagnosis: pneumonia, lymphadenopathy cancer or lymphoma not excluded Discharge Goals: Decrease discomfort and Improve disease control Activity: Resume your previous activity Non-emergency contact: Primary Care Provider, Oncologist and Drier And Pulverizer Tender Call non-emergency contact if: you have any medication questions, your symptoms worsen, your pain is not controlled, your pain is concerning for you, you have a fever and your temperature is above 100.5 Follow-up/Referrals: Joon Chavez MD, FACS [Surgeon] - 03/18/19 9:30 am (Please, follow up at [facility] General Surgery Office with Dr. Chavez on March 18 at 9:30 am. *This is regarding a procedure to obtain an adequate tissue sample for biopsy. The office is located at [address] [place] [address] in [place]. If you need to change this appointment, call the office at [phone].) Arjun Snyder [Physician] - (Please, follow up with Dr. Arjun Snyder regarding the results of your bronchoscopy. *A nurse from his office will call you with the details. The office is located in the rear of this hospital. You will park BEHIND the hospital in [address] and enter via [facility]. If you have any questions, call his office at [phone].) MATTHEW LUCIANO PA [Primary Care Provider] - 03/03/19 3:20 pm (Please, follow up with Matthew Luciano PA-C on FridayMarch 03 at 3:20 pm. *If you need to change this appointment, call the office at [phone].) Diet: Heart Healthy, Low Fat and Low Sodium (2gm) Addtl Provider Instructions: Please follow up with Dr. Ac for lung biopsy, and Dr. Snyder after biopsy result is available. You re started on Lavaquin -antibiotic 750 mg per mouth for 7 days. Please follow up with your PCP in 7 days . Check CBC and CMP-labs. Use oxygen daily as needed for SOB. keep O2 saturation above 92% Prescriptions: New prednisone 10 mg Tablet 30 mg PO DAILY Qty: 21 RF: 0 ipratropium-albuterol 0.5 mg-3 mg(2.5 mg base)/3 mL Solution For Nebulization 3 ml NEB Q4R Qty: 1 RF: 0 Symbicort 80-4.5 mcg/actuation Hfa Aerosol Inhaler 2 puff inhalation BID Qty: 1 RF: 0 guaifenesin [Mucinex] 600 mg Tablet Extended Release 12hr 1,200 mg PO Q12 Qty: 20 RF: 0 levofloxacin 750 mg tablet 750 mg PO DAILY 7 Days Qty: 7 RF: 0 Continued diltiazem HCl 120 mg Tablet 120 mg PO DAILY RF: 0 furosemide 40 mg Tablet 40 mg PO QAM RF: 0 atorvastatin [Lipitor] 40 mg Tablet 40 mg PO HS RF: 0 carvedilol [Coreg] 12.5 mg Tablet 12.5 mg PO BID RF: 0 isosorbide mononitrate 30 mg Tablet Extended Release 24 Hr 30 mg PO QAM RF: 0 potassium chloride [Klor-Con 10] 10 mEq Tablet Extended Release 10 meq PO DAILY RF: 0 aspirin [Ecotrin Low Strength] 81 mg Tablet,Delayed Release (Dr/Ec) 81 mg PO DAILY RF: 0 Xarelto 20 mg Tablet 20 mg PO QAM RF: 0 Stand-Alone Forms: [facility] Discharge Orders: Discharge Order (Routine); Ordered 03/01/19 Ordered By: Cass Oliveros Admission Data Admit Date/Time: 02/23/19 15:59 Attending Provider: Cass Oliveros Admit Provider: Cass Oliveros Primary Care Provider: MATHTEW LUCIANO Other Providers: Arjun Snyder ; Matthias Magallanes Service: Telemetry Medical
--- NOTE | 2019-03-01 17:05 | Consultation Report ---
DATE OF CONSULTATION: 03/01/2019 CONSULTATION/PREOPERATIVE HISTORY AND PHYSICAL REASON FOR CONSULTATION: Hilar and mediastinal adenopathy. HISTORY OF PRESENT ILLNESS: Hari Lamb is an 79-year-old male who was admitted to [facility] as a referral from [facility]. He has a history of atrial fibrillation and is on Xarelto. He has coronary artery disease, had myocardial infarction, and CABG with ICD and pacemaker insertion. The patient has a history of cigarette smoking but states he quit many years ago. He has been treated for the last several weeks for pneumonia which has recurred. Upon closer questioning, the patient has had a poor appetite and has not been eating. He has not responded to IV antibiotics at [facility]. He has also been much more short of breath. Upon closer questioning, the patient states that his breathing has not been right for at least a couple of months. He also is not "felt like doing anything". His notes that he has lost at least 10 pounds over the last several months. He has had a cough which initially was productive and now has become nonproductive. He states that since he was admitted here 6 days ago, he feels much better. The patient underwent an endobronchial ultrasound 4 days ago; however, unfortunately, we did not get any answer to this. His CT scan showed not only marked hilar adenopathy, but he actually has stenosis of his right mainstem and right upper lobe bronchus. He has infiltrates which may well be postobstructive. He has responded to the latest course of antibiotics. I was asked to see him for a tissue diagnosis. PAST MEDICAL HISTORY: 1. Active alcohol use. The patient states he drinks beer daily. He was a bit evasive about exactly how much, but says "it at least a couple." 2. Atrial fibrillation. 3. Hyperlipidemia. 4. Coronary artery disease. 5. Decreased LV function. 6. Hyperlipidemia. 7. Hypertension. 8. History of cigarette smoking. 9. Hyperlipidemia. 10. History of myocardial infarction. 11. Degenerative joint disease. 12. Cataracts. 13. History of cholelithiasis. PAST SURGICAL HISTORY: 1. Cholecystectomy. 2. Coronary artery bypass grafting in 2006. 3. Steroid eluting stent insertion in 2006. 4. Cataract extraction. 5. Cardiac catheterization. 6. Right total hip arthroplasty. 7. Left rotator cuff repair. MEDICATIONS AT HOME: 1. Xarelto. 2. Levaquin. 3. Aspirin. 4. Lipitor. 5. Coreg. 6. Lasix. 7. Isosorbide mononitrate. 8. Diltiazem. ALLERGIES: 1. PENICILLIN. 2. LATEX. 3. ADHESIVES. SOCIAL HISTORY: The patient is a retired alvarez. He states he still does "work around the house," but he has been retired for 19 years. He does not smoke cigarettes but drinks alcohol daily. He lives at home with his of many years. His of 30 years. FAMILY MEDICAL HISTORY: His 2 children and multiple grandchildren are all healthy. REVIEW OF SYSTEMS: The patient has become markedly short of breath over the last 2 months. He has had increasing fatigue. He had some weight loss. He denies fevers but did have a productive cough which is no longer productive. He denies any decrease in visual or auditory acuity. He has been markedly short of breath. He states that a year ago, he could walk half a mile without difficulty. He denies palpitations or chest pain. He states he has had no peripheral edema, but he has peripheral edema on today's exam. He denies any GI or symptoms. He denies any joint effusions. He has had no neurologic events such amaurosis fugax, transient ischemic attacks or strokes. PHYSICAL EXAMINATION: GENERAL: This is a 5 feet 10 inch, 180 pound male who is awake, alert and oriented. HEENT: His extraocular movements are intact. He has no nasolabial flattening. His tongue is midline. Oral mucosa is a bit dry, but he has no oral mucosal lesions. He has got a few rhonchi, but really is moving air without wheezing. HEART: He has a regular rate and rhythm of his heart. He has a well-healed sternotomy incision with no click. ABDOMEN: Soft, nontender. He has good peripheral pulses, but he has about 1+ peripheral edema which is equal bilaterally with no hemosiderin deposition or lipodermatosclerosis. He has no focal deficits. NEUROLOGIC: He is awake, alert and oriented. ASSESSMENT AND PLAN: Marked hilar and mediastinal adenopathy with apparent postobstructive pneumonia which is responding to antibiotics and steroids. We had a long talk about this. I believe that we can get a diagnosis and endobronchial ultrasound. We have new biopsy needles which are actually forceps. I offered to do this tomorrow, but the patient is "sick of being in the hospital" and feels much better. He would like to go home. We had a long talk about this and I agreed to let him be discharged. I will see him back in the office and we will discuss the merits of a repeat endobronchial ultrasound versus a mediastinoscopy. I am quite convinced that this patient has a malignant process. I am hopeful it is lymphoma as opposed to a lung cancer; however, we do need a diagnosis. He understands and agrees, but would like to do this as an outpatient. SALVADOR
[2019-03-01] MEDS ORDERED: DOXYCYCLINE HYCLATE 100 MG CAP PO SCH (21:00)
== END 2019-03-01 17:49 | disposition home or self-care (01) | DRG 195 ==
LOC: 2N 15:59